=== PATIENT | male | born 1990 | race Caucasian/White ===

== ENCOUNTER 2024-10-23 11:23 | Emergency (ER) | payer OTHER ==
[~2024-10-23] VITALS: Ht 167.6 cm; Wt 65.0 kg
[~2024-10-23 11:23] MED LIST: FLAS1EAC2 TP; FLUC100T PO; INSU100I28 SQ
[2024-10-23 11:43] VITALS: BP 100/63; PULSE 109; RESP 18; TEMP 98.4; O2SAT 98
== END 2024-10-23 14:14 | disposition home or self-care (01) ==
LOC: ER 11:23
DX: E10.649 Type 1 diabetes mellitus with hypoglycemia without coma (principal); F15.10 Other stimulant abuse, uncomplicated; Z79.4 Long term (current) use of insulin
CPT/HCPCS: 82962; 99283

== ENCOUNTER 2024-10-25 14:24 | Emergency (ER) | payer OTHER ==
[~2024-10-25] VITALS: Ht 170.2 cm; Wt 70.0 kg
[2024-10-25 14:27] VITALS: O2SAT 99
[2024-10-25] MEDS: SODIUM CHLORIDE 0.9% 1,000 ML IV ONE ×2 (14:57→16:34)
[2024-10-25 15:10] LABS: BASOPHILS % 0.3 % (0.0-2.0); EOSINOPHILS % 2.6 % (0.0-5.0); HEMATOCRIT. 28.6 % (42.0-52.0); HEMOGLOBIN. 8.8 g/dL (14.0-18.0); LYMPHOCYTES % 15.1 % (20.0-50.0); MEAN CORPUSCULAR HEMOGLOBIN 25.2 pg (28.0-32.0); MEAN CORPUSCULAR HGB CONC 30.9 g/dL (31.0-37.0); MEAN CORPUSCULAR VOLUME 81.6 fL (80.0-94.0); MONOCYTES % 11.7 % (2.0-8.0); NEUTROPHILS % 70.3 % (40.0-76.0); PLATELET 299 x1000/uL (130-400); RED BLOOD CELL COUNT 3.51 mill/uL (4.7-6.1); RED CELL DISTRIBUTION WIDTH 19.7 % (11.6-14.6); WHITE BLOOD COUNT 5.5 x1000/uL (4.5-11.0)
[2024-10-25 15:12] LABS: CHLORIDE 102 mEq/L (98-107); POTASSIUM 5.2 mEq/L (3.5-5.1); SODIUM 131 mEq/L (136-145)
[2024-10-25 15:13] LABS: CALCIUM 9.1 mg/dL (8.7-10.4); CARBON DIOXIDE 22 mEq/L (21-32)
[2024-10-25 15:18] LABS: CREATININE 1.1 mg/dL (0.6-1.3); UREA NITROGEN BLOOD 17 mg/dL (9-23)
[2024-10-25 15:21] LABS: BETA HYDROXYBUTYRATE 0.2 mMol/L (0.0-0.3)
[2024-10-25 15:34] LABS: GLUCOSE 634 mg/dL (70-105)
[2024-10-25] MEDS: INSULIN REGULAR (HUMULIN R) 1000UNITS/10ML VIAL SUBCUT ONE (15:45)
[2024-10-25 17:17] LABS: BG BASE EXCESS -4.5 mmol/L (-2.0-3.0); BG CARBOXYHEMOGLOBIN 0.4 % (0.5-1.5); BG DEOXYHEMOGLOBIN 6.5 % (0.0-5.0); BG HCO3 ACT 20.4 mmol/L (21.0-28.0); BG METHEMOGLOBIN 0.3 % (0.5-1.5); BG OXYGEN SATURATION 93.5 % (94.0-98.0); BG OXYHEMOGLOBIN 92.8 % (94.0-98.0); BG PCO2 36.8 mmHg (35.0-48.0); BG PH 7.362 (7.350-7.450); BG PO2 71.8 mmHg (83.0-108.0); BG SAMPLE SITE RIGHT RADIAL; BG TOTAL HEMOGLOBIN 10.2 g/dL (13.5-17.5); BG VENT MODE ROOM AIR
[2024-10-25] MEDS ORDERED: MAGNESIUM/ALUMINUM HYDROXIDE/SIMETHICONE 30ML UDC PO ONE (17:45)
[2024-10-25] MEDS ORDERED: ACETAMINOPHEN 650MG/20.3ML UDC PO ONE (17:45)
[2024-10-25] MEDS ORDERED: CALCIUM GLUCONATE 100MG/ML 10ML VIAL IV ONE (17:45)
[2024-10-25 18:22] VITALS: TEMP 36.78072; O2SAT 100
[2024-10-25 18:31] VITALS: BP 133/85; PULSE 75; RESP 16
[2024-10-25] MEDS: MORPHINE SULFATE 4 MG/ML INJ (FOR IV/IM USE) IV ONE (18:31)
[2024-10-25] MEDS: ONDANSETRON HCL 4MG/2ML INJ IV ONE (18:31)
[2024-10-25] MEDS: KETOROLAC 15MG/ML VIAL IV ONE (18:31)
== END 2024-10-25 19:05 | disposition short-term general hospital (02) ==
LOC: ER 14:46 → EDBEDREQ 15:04 → CANBEDREQ 17:32 → ER 19:05
DX: E10.65 Type 1 diabetes mellitus with hyperglycemia (principal); E87.5 Hyperkalemia; F15.90 Other stimulant use, unspecified, uncomplicated; Z79.899 Other long term (current) drug therapy
CPT/HCPCS: 80048; 82010; 82962; 83690; 85025; 36415; 82805; 82375; 93005; 96361; 96372; 96374; 96375; 99285; 36600; J1815; J1885; J2405; J2270; J7030; Z7610 ×3; J0610

== ENCOUNTER 2024-11-01 18:52 | Emergency (ER) | payer OTHER ==
[~2024-11-01] VITALS: Ht 167.6 cm; Wt 77.0 kg
[2024-11-01 19:08] VITALS: BP 114/77; PULSE 93; RESP 18; TEMP 98.2; O2SAT 96
[2024-11-01 21:13] LABS: CHLORIDE 110 mEq/L (98-107); POTASSIUM 3.5 mEq/L (3.5-5.1); SODIUM 139 mEq/L (136-145)
[2024-11-01 21:14] LABS: CALCIUM 9.1 mg/dL (8.7-10.4); CARBON DIOXIDE 23 mEq/L (21-32)
[2024-11-01 21:16] LABS: BASOPHILS % 0.2 % (0.0-2.0); EOSINOPHILS % 13.3 % (0.0-5.0); HEMATOCRIT. 32.5 % (42.0-52.0); HEMOGLOBIN. 10.1 g/dL (14.0-18.0); MEAN CORPUSCULAR HGB CONC 31.2 g/dL (31.0-37.0); MEAN CORPUSCULAR VOLUME 80.1 fL (80.0-94.0); MONOCYTES % 5.9 % (2.0-8.0); NEUTROPHILS % 62.6 % (40.0-76.0); PLATELET 451 x1000/uL (130-400); RED BLOOD CELL COUNT 4.05 mill/uL (4.7-6.1); WHITE BLOOD COUNT 13.6 x1000/uL (4.5-11.0)
[2024-11-01 21:19] LABS: CREATININE 0.7 mg/dL (0.6-1.3); UREA NITROGEN BLOOD 9 mg/dL (9-23)
[2024-11-01 21:21] LABS: GLUCOSE 72 mg/dL (70-105)
[2024-11-01 23:06] LABS: ALANINE AMINOTRANSFERASE 16 IU/L (10-49); ASPARTATE AMINOTRANSFERASE 11 IU/L (<34)
[2024-11-01 23:07] LABS: ALBUMIN 4.2 g/dL (3.2-4.8); BILIRUBIN DIRECT 0.1 mg/dL (<=3.0); BILIRUBIN TOTAL 0.4 mg/dL (0.1-1.0); PROTEIN TOTAL 7.2 g/dL (6.0-8.3)
[2024-11-02 01:18] LABS: CLARITY URINE CLEAR (CLEAR); COLOR URINE YELLOW (YELLOW); GLUCOSE URINE 3+ (NEGATIVE); KETONES URINE NEGATIVE (NEGATIVE); LEUKOCYTE ESTERASE URINE NEGATIVE (NEGATIVE); NITRITE URINE NEGATIVE (NEGATIVE); OCCULT BLOOD URINE NEGATIVE (NEGATIVE); PH URINE 5.5 (4.5-8.0); PROTEIN URINE 1+ (NEGATIVE); SPECIFIC GRAVITY URINE 1.027 (1.005-1.030); UROBILINOGEN URINE 0.2 E.U./dL (0.2-1.0)
[2024-11-02] MEDS: MORPHINE SULFATE 4 MG/ML INJ (FOR IV/IM USE) IM ONE (01:30)
[2024-11-02] MEDS: MORPHINE SULFATE 4 MG/ML INJ (FOR IV/IM USE) IM NR (01:30)
[2024-11-02] MEDS: ONDANSETRON 4MG ODT PO NR (01:30)
[2024-11-02] MEDS: ONDANSETRON 4MG ODT PO ONE (01:31)
[2024-11-02 01:57] LABS: WBC URINE 0-2 /hpf (0-2)
[2024-11-02 01:58] LABS: BACTERIA URINE 2+; RBC URINE 0-2 /hpf (0-2); SQUAMOUS EPITHELIAL CELL URINE NONE SEEN /lpf (RARE/1+)
== END 2024-11-02 03:09 | disposition home or self-care (01) ==
LOC: ER 18:52
DX: R10.30 Lower abdominal pain, unspecified (principal); E10.8 Type 1 diabetes mellitus with unspecified complications; F15.90 Other stimulant use, unspecified, uncomplicated
CPT/HCPCS: 99285; 74176; 80076; 80048; 82962; 83690; 85025; 36415; 81003; 96372; Q0162; J2270

== ENCOUNTER 2025-04-26 22:52 | Emergency (ER) | payer MEDICAID ==
[~2025-04-26] VITALS: Ht 165.1 cm; Wt 59.0 kg
[~2025-04-26 22:52] MED LIST changes: -FLUC100T PO; +IBUP-2028 MT; -INSU100I28 SQ; +LANTUSUD SUBCUT
[2025-04-26 22:56] VITALS: O2SAT 99
[2025-04-26] MEDS: ACETAMINOPHEN WITH CODEINE 300/30MG TABLET PO STA (23:53)
[2025-04-26] MEDS: SODIUM CHLORIDE 0.9% 1,000 ML IV ONE (23:53)
[2025-04-26] MEDS: LIDOCAINE 5% PATCH TOP STA (23:59)
[2025-04-27 00:42] LABS: BASOPHILS % 0.6 % (0.0-2.0); EOSINOPHILS % 2.4 % (0.0-5.0); HEMATOCRIT. 30.8 % (42.0-52.0); HEMOGLOBIN. 10.2 g/dL (14.0-18.0); MEAN CORPUSCULAR HEMOGLOBIN 27.6 pg (28.0-32.0); MEAN CORPUSCULAR VOLUME 83.5 fL (80.0-94.0); MEAN PLATELET VOLUME 8.3 fl (7.4-10.4); MONOCYTES % 4.7 % (2.0-8.0); NEUTROPHILS % 57.3 % (40.0-76.0); PLATELET 284 x1000/uL (130-400); RED BLOOD CELL COUNT 3.69 mill/uL (4.7-6.1); RED CELL DISTRIBUTION WIDTH 17.6 % (11.6-14.6); WHITE BLOOD COUNT 5.4 x1000/uL (4.5-11.0)
[2025-04-27 00:53] LABS: PROTHROMBIN TIME 10.8 sec (9.6-11.0)
[2025-04-27 01:04] LABS: CARBON DIOXIDE 26 mEq/L (21-32); CHLORIDE 102 mEq/L (98-107); POTASSIUM 3.8 mEq/L (3.5-5.1); SODIUM 134 mEq/L (136-145)
[2025-04-27 01:05] LABS: CALCIUM 8.8 mg/dL (8.7-10.4)
[2025-04-27 01:10] LABS: ETHANOL BLOOD < 10 mg/dL (<10); UREA NITROGEN BLOOD 20 mg/dL (9-23)
[2025-04-27 01:11] LABS: ALANINE AMINOTRANSFERASE 39 IU/L (10-49); ASPARTATE AMINOTRANSFERASE 22 IU/L (<34)
[2025-04-27 01:12] LABS: ALBUMIN 3.8 g/dL (3.2-4.8); BILIRUBIN DIRECT 0.3 mg/dL (<=3.0); PROTEIN TOTAL 6.1 g/dL (6.0-8.3)
[2025-04-27 01:56] LABS: GLUCOSE 280 mg/dL (70-105); TROPONIN I HIGH SENSITIVITY < 4 ng/L (3.0-53)
[2025-04-27 02:24] LABS: BETA HYDROXYBUTYRATE 0.4 mMol/L (0.0-0.3)
[2025-04-27 03:27] LABS: CLARITY URINE CLEAR (CLEAR); COLOR URINE YELLOW (YELLOW); GLUCOSE URINE 3+ (NEGATIVE); KETONES URINE TRACE (NEGATIVE); LEUKOCYTE ESTERASE URINE NEGATIVE (NEGATIVE); NITRITE URINE NEGATIVE (NEGATIVE); OCCULT BLOOD URINE NEGATIVE (NEGATIVE); PH URINE 5.5 (4.5-8.0); PROTEIN URINE NEGATIVE (NEGATIVE); SPECIFIC GRAVITY URINE 1.021 (1.005-1.030); UROBILINOGEN URINE 0.2 E.U./dL (0.2-1.0)
[2025-04-27 03:30] LABS: *AMPHETAMINES SCREEN URINE PRESUMPTIVE POSITIVE (NEGATIVE)
[2025-04-27 03:31] LABS: *BARBITURATES SCREEN URINE NEGATIVE (NEGATIVE); *BENZODIAZEPINES SCREEN URINE NEGATIVE (NEGATIVE); *COCAINE SCREEN URINE NEGATIVE (NEGATIVE); CANNABINOID URINE SCREEN PRESUMPTIVE POSITIVE (NEGATIVE); ECSTASY MDMA SCREEN URINE NEGATIVE (NEGATIVE); METHADONE URINE SCREEN NEGATIVE (NEGATIVE); OPIATES URINE SCREEN PRESUMPTIVE POSITIVE (NEGATIVE); PHENCYCLIDINE URINE SCREEN NEGATIVE (NEGATIVE)
[2025-04-27 05:34] VITALS: BP 107/74; PULSE 80; RESP 9; TEMP 36.4; O2SAT 98
[2025-04-27 05:36] LABS: RBC URINE 0-2 /hpf (0-2); WBC URINE 0-2 /hpf (0-2)
[2025-04-27 05:37] LABS: BACTERIA URINE NONE SEEN; SQUAMOUS EPITHELIAL CELL URINE NONE SEEN /lpf (RARE/1+)
[2025-04-27 05:38] LABS: YEAST URINE Few budding yeasts
== END 2025-04-27 05:45 | disposition home or self-care (01) ==
LOC: ER 22:52
DX: R55 Syncope and collapse (principal); F19.10 Other psychoactive substance abuse, uncomplicated; E11.9 Type 2 diabetes mellitus without complications; F20.9 Schizophrenia, unspecified; Z59.01 Sheltered homelessness; Z79.4 Long term (current) use of insulin; Z79.899 Other long term (current) drug therapy
CPT/HCPCS: 36415; 71045; 93005; 96360; 99285; 80076; 80305; 80048; 81003; 82010; 80320; 83880; 83605; 83690; 85025; 85610; 87040; 87086; 84484; 84145; 70450; 72125; J7030; G0480

== ENCOUNTER 2025-05-06 00:58 | Inpatient (IN) | payer MEDICAID ==
[2025-05-06] VITALS (17 sets, daily range): BP systolic 110–140; BP diastolic 64–93; PULSE 80–96; RESP 11–20; TEMP 36.6–37.1; O2SAT 97–100
[~2025-05-06] VITALS: Ht 165.1 cm; Wt 59.1 kg
[2025-05-06] MEDS ORDERED: INSULIN GLARGINE 100 UNITS/ML SUBCUT ONE (01:30)
[2025-05-06 01:43] LABS: BASOPHILS % 0.5 % (0.0-2.0); EOSINOPHILS % 0.8 % (0.0-5.0); HEMATOCRIT. 27.8 % (42.0-52.0); HEMOGLOBIN. 8.8 g/dL (14.0-18.0); LYMPHOCYTES % 12.5 % (20.0-50.0); MEAN CORPUSCULAR HEMOGLOBIN 27.3 pg (28.0-32.0); MEAN CORPUSCULAR HGB CONC 31.7 g/dL (31.0-37.0); MEAN CORPUSCULAR VOLUME 86.2 fL (80.0-94.0); MEAN PLATELET VOLUME 7.3 fl (7.4-10.4); NEUTROPHILS % 77.2 % (40.0-76.0); PLATELET 434 x1000/uL (130-400); RED BLOOD CELL COUNT 3.22 mill/uL (4.7-6.1); RED CELL DISTRIBUTION WIDTH 16.8 % (11.6-14.6); WHITE BLOOD COUNT 8.1 x1000/uL (4.5-11.0)
[2025-05-06] MEDS ORDERED: HYDROCODONE/ACETAMINOPHEN 5/325MG TABLET PO ONE (01:45)
[2025-05-06 01:50] LABS: CARBON DIOXIDE 24 mEq/L (21-32); CHLORIDE 94 mEq/L (98-107); POTASSIUM 4.6 mEq/L (3.5-5.1); SODIUM 132 mEq/L (136-145)
[2025-05-06 01:51] LABS: CALCIUM 9.4 mg/dL (8.7-10.4)
[2025-05-06 01:55] LABS: CREATININE 1.3 mg/dL (0.6-1.3)
[2025-05-06 01:56] LABS: ETHANOL BLOOD < 10 mg/dL (<10); UREA NITROGEN BLOOD 21 mg/dL (9-23)
[2025-05-06 01:58] LABS: BETA HYDROXYBUTYRATE 2.7 mMol/L (0.0-0.3); PHOSPHORUS 3.8 mg/dL (2.5-4.9)
[2025-05-06 02:08] LABS: GLUCOSE 723 mg/dL (70-105)
[2025-05-06] MEDS: SODIUM CHLORIDE 0.9% 1,000 ML IV ONE ×2 (02:15→05:45)
[2025-05-06] MEDS ORDERED: KCL 20MEQ/100ML PREMIX 100 ML IV PRN ×2 (02:30→08:00)
[2025-05-06] MEDS ORDERED: MAGNESIUM 2 G PREMIX 50 ML IV PRN ×2 (02:30→08:00)
[2025-05-06] MEDS ORDERED: BLOOD SUGAR DIAGNOSTIC STRIP TEST PRN ×2 (02:30→08:00)
[2025-05-06] MEDS: INSULIN REGULAR (HUMULIN R) 1000UNITS/10ML VIAL IV SCH (02:47)
[2025-05-06] MEDS: BLOOD SUGAR DIAGNOSTIC STRIP TEST SCH ×2 (03:00→11:44)
[2025-05-06] MEDS ORDERED: INSULIN REGULAR 100U/100ML PMX 100 ML IV SCH (03:00)
[2025-05-06] MEDS: PROPOFOL 200MG/20ML VIAL IV ONE (03:26)
[2025-05-06] MEDS: INSULIN REGULAR 100U/100ML PMX 100 ML IV SCH (04:35)
[2025-05-06] MEDS: HYDROCODONE/ACETAMINOPHEN 5/325MG TABLET PO SCH (04:52)
[2025-05-06] MEDS: SODIUM CHLORIDE 0.9% 1,000 ML IV SCH (04:59)
[2025-05-06] MEDS: ACETAMINOPHEN 1000MG/100ML 100 ML IV ONE (05:44)
[2025-05-06] MEDS ORDERED: DEXTROSE 50% WATER 50ML SYRINGE IV PRN ×2 (08:00→09:30)
[2025-05-06] MEDS ORDERED: SODIUM CHLORIDE 0.9% 1,000 ML IV SCH (08:00)
[2025-05-06] MEDS ORDERED: INSULIN REGULAR (DRIP) 100 UNITS in SODIUM CHLORIDE 0.9% 99 ML IV SCH (08:00)
[2025-05-06 08:01] LABS: CLARITY URINE CLEAR (CLEAR); COLOR URINE YELLOW (YELLOW); GLUCOSE URINE 3+ (NEGATIVE); KETONES URINE 1+ (NEGATIVE); LEUKOCYTE ESTERASE URINE NEGATIVE (NEGATIVE); NITRITE URINE NEGATIVE (NEGATIVE); OCCULT BLOOD URINE NEGATIVE (NEGATIVE); PROTEIN URINE NEGATIVE (NEGATIVE); SPECIFIC GRAVITY URINE 1.028 (1.005-1.030); UROBILINOGEN URINE 0.2 E.U./dL (0.2-1.0)
[2025-05-06] MEDS: DEXT 5%/0.9% NACL 1,000 ML IV SCH (08:34)
[2025-05-06 08:47] LABS: *AMPHETAMINES SCREEN URINE PRESUMPTIVE POSITIVE (NEGATIVE); *BARBITURATES SCREEN URINE NEGATIVE (NEGATIVE); *BENZODIAZEPINES SCREEN URINE NEGATIVE (NEGATIVE); *COCAINE SCREEN URINE NEGATIVE (NEGATIVE); CANNABINOID URINE SCREEN NEGATIVE (NEGATIVE); ECSTASY MDMA SCREEN URINE NEGATIVE (NEGATIVE); METHADONE URINE SCREEN NEGATIVE (NEGATIVE); OPIATES URINE SCREEN NEGATIVE (NEGATIVE); PHENCYCLIDINE URINE SCREEN NEGATIVE (NEGATIVE)
[2025-05-06] MEDS: DEXTROSE 50% WATER 50ML SYRINGE IV PRN (08:49)
[2025-05-06 08:52] LABS: SQUAMOUS EPITHELIAL CELL URINE RARE /lpf (RARE/1+)
[2025-05-06 08:53] LABS: BACTERIA URINE TRACE; RBC URINE 0-2 /hpf (0-2); WBC URINE 0-2 /hpf (0-2)
[2025-05-06 08:56] LABS: YEAST URINE 1+
[2025-05-06] MEDS ORDERED: POTASSIUM CHLORIDE 40 MEQ in SODIUM CHLORIDE 0.9% 230 ML IV PRN (09:00)
[2025-05-06] MEDS ORDERED: SODIUM PHOSPHATE 15 MMOL in SODIUM CHLORIDE 0.9% 245 ML IV PRN (09:00)
[2025-05-06 09:17] LABS: BG BASE EXCESS 2.4 mmol/L (-2.0-3.0); BG CARBOXYHEMOGLOBIN 0.3 % (0.5-1.5); BG DEOXYHEMOGLOBIN 4.5 % (0.0-5.0); BG FRACTION INSPIRED OXYGEN 21; BG HCO3 ACT 27.4 mmol/L (21.0-28.0); BG METHEMOGLOBIN 0.1 % (0.5-1.5); BG OXYGEN SATURATION 95.5 % (94.0-98.0); BG OXYHEMOGLOBIN 95.1 % (94.0-98.0); BG PCO2 44.4 mmHg (35.0-48.0); BG PH 7.408 (7.350-7.450); BG PO2 123.7 mmHg (83.0-108.0); BG SAMPLE SITE RIGHT RADIAL; BG TOTAL HEMOGLOBIN 8.1 g/dL (13.5-17.5); BG VENT MODE ROOM AIR
[2025-05-06] MEDS ORDERED: NALOXONE HCL 0.4MG/ML VIAL IV PRN ×2 (09:30→16:30)
[2025-05-06] MEDS: INSULIN GLARGINE 100 UNITS/ML SUBCUT NR (10:28)
[2025-05-06] MEDS: INSULIN LISPRO 100 UNITS/ML SUBCUT SCH ×3 (11:55→17:05)
[2025-05-06 11:57] LABS: CHLORIDE 104 mEq/L (98-107); POTASSIUM 3.7 mEq/L (3.5-5.1); SODIUM 140 mEq/L (136-145)
[2025-05-06 11:58] LABS: CALCIUM 8.8 mg/dL (8.7-10.4); CARBON DIOXIDE 25 mEq/L (21-32)
[2025-05-06 12:03] LABS: CREATININE 0.7 mg/dL (0.6-1.3)
[2025-05-06 12:04] LABS: UREA NITROGEN BLOOD 14 mg/dL (9-23)
[2025-05-06 12:06] LABS: PHOSPHORUS 3.3 mg/dL (2.5-4.9)
[2025-05-06 12:12] LABS: GLUCOSE 252 mg/dL (70-105)
[2025-05-06] MEDS: HYDROCODONE/ACETAMINOPHEN 5/325MG TABLET PO PRN (13:14)
[2025-05-06] MEDS: INSULIN GLARGINE 100 UNITS/ML SUBCUT SCH ×2 (17:06→21:36)
[2025-05-06] MEDS ORDERED: INSULIN GLARGINE 100 UNITS/ML SUBCUT SCH (22:00)
[2025-05-07] VITALS: BP 132/74; PULSE 97; RESP 22; TEMP 36.2; O2SAT 100
[2025-05-07 04:00] VITALS: BP 95/56; PULSE 90; RESP 20; TEMP 36.2; O2SAT 99
[2025-05-07 08:00] VITALS: BP 107/77; PULSE 88; RESP 20; TEMP 36.4; O2SAT 98
[2025-05-07 12:00] VITALS: BP 64/57; PULSE 93; RESP 20; TEMP 36.5; O2SAT 100
[2025-05-07 13:38] VITALS: RESP 20
[2025-05-07 17:23] VITALS: BP 111/62; PULSE 93; TEMP 97; O2SAT 100
== END 2025-05-07 17:57 | disposition home or self-care (01) | DRG 342 ==
LOC: ER 01:11 → MICUSO 03:27 → EDBEDREQ 04:25 → EDBEDREQTM 04:25 → ENRESERV 06:25 → 8WST 17:42
PROVIDERS: ADMIT Internal Medicine; ATTEND Internal Medicine
PROC: 0QSGXZZ Reposition Right Tibia, External Approach (ICD-10-PCS; principal; 2025-05-06)
DX: S82.851A Displaced trimalleolar fracture of right lower leg, initial encounter for closed fracture (principal); E11.40 Type 2 diabetes mellitus with diabetic neuropathy, unspecified; D64.9 Anemia, unspecified; F15.90 Other stimulant use, unspecified, uncomplicated; F17.210 Nicotine dependence, cigarettes, uncomplicated; W18.39XA Other fall on same level, initial encounter; Z79.4 Long term (current) use of insulin; Y93.89 Activity, other specified; Y92.89 Other specified places as the place of occurrence of the external cause; Y99.8 Other external cause status; Z79.899 Other long term (current) drug therapy
CPT/HCPCS: 36415; 36600; 73610; 80048; 80305; 80320; 81003; 82010; 82375; 82805; 82962; 83036; 83735; 83930; 84100; 85025; 99291; A4606; J1815; J2704; J7030; G0480; J0131

== ENCOUNTER 2025-05-12 00:52 | Inpatient (IN) | payer MEDICAID ==
[2025-05-12] VITALS (56 sets, daily range): BP systolic 99–131; BP diastolic 58–92; PULSE 88–107; RESP 9–28; TEMP 35.6–36.5; O2SAT 97–100
[~2025-05-12] VITALS: Ht 172.7 cm; Wt 69.4 kg
[2025-05-12 01:30] LABS: BG BASE EXCESS -26.7 mmol/L (-2.0-3.0); BG CARBOXYHEMOGLOBIN 0.3 % (0.5-1.5); BG DEOXYHEMOGLOBIN 4.2 % (0.0-5.0); BG FRACTION INSPIRED OXYGEN 21; BG HCO3 ACT 2.3 mmol/L (21.0-28.0); BG METHEMOGLOBIN 0.1 % (0.5-1.5); BG OXYGEN SATURATION 95.8 % (94.0-98.0); BG OXYHEMOGLOBIN 95.4 % (94.0-98.0); BG PCO2 9.3 mmHg (35.0-48.0); BG PH 7.009 (7.350-7.450); BG PO2 148.1 mmHg (83.0-108.0); BG SAMPLE SITE RIGHT RADIAL; BG TOTAL HEMOGLOBIN 9.7 g/dL (13.5-17.5); BG VENT MODE ROOM AIR
[2025-05-12] MEDS: INSULIN REGULAR 100U/100ML PMX 100 ML IV STA (01:34)
[2025-05-12 01:50] LABS: BASOPHILS % 0.4 % (0.0-2.0); EOSINOPHILS % 0.1 % (0.0-5.0); HEMATOCRIT. 34.3 % (42.0-52.0); HEMOGLOBIN. 9.9 g/dL (14.0-18.0); LYMPHOCYTES % 8.4 % (20.0-50.0); MEAN PLATELET VOLUME 8.0 fl (7.4-10.4); MONOCYTES % 4.4 % (2.0-8.0); NEUTROPHILS % 86.7 % (40.0-76.0); PLATELET 772 x1000/uL (130-400); RED BLOOD CELL COUNT 3.70 mill/uL (4.7-6.1); RED CELL DISTRIBUTION WIDTH 15.2 % (11.6-14.6)
[2025-05-12 01:56] LABS: COLOR URINE YELLOW (YELLOW)
[2025-05-12 01:57] LABS: *AMPHETAMINES SCREEN URINE PRESUMPTIVE POSITIVE (NEGATIVE); *BARBITURATES SCREEN URINE NEGATIVE (NEGATIVE); *BENZODIAZEPINES SCREEN URINE NEGATIVE (NEGATIVE); *COCAINE SCREEN URINE NEGATIVE (NEGATIVE); CLARITY URINE CLEAR (CLEAR); GLUCOSE URINE 3+ (NEGATIVE); KETONES URINE 4+ (NEGATIVE); LEUKOCYTE ESTERASE URINE NEGATIVE (NEGATIVE); METHADONE URINE SCREEN NEGATIVE (NEGATIVE); NITRITE URINE NEGATIVE (NEGATIVE); OCCULT BLOOD URINE TRACE (NEGATIVE); OPIATES URINE SCREEN NEGATIVE (NEGATIVE); PH URINE 5.0 (4.5-8.0); PHENCYCLIDINE URINE SCREEN NEGATIVE (NEGATIVE); PROTEIN URINE TRACE (NEGATIVE); SPECIFIC GRAVITY URINE 1.022 (1.005-1.030); UROBILINOGEN URINE 0.2 E.U./dL (0.2-1.0)
[2025-05-12 01:58] LABS: CANNABINOID URINE SCREEN NEGATIVE (NEGATIVE); ECSTASY MDMA SCREEN URINE CONF.TEST INDICATED (NEGATIVE)
[2025-05-12 02:06] LABS: ETHANOL BLOOD < 10 mg/dL (<10); UREA NITROGEN BLOOD 39 mg/dL (9-23)
[2025-05-12 02:08] LABS: PHOSPHORUS 7.2 mg/dL (2.5-4.9)
[2025-05-12] MEDS ORDERED: POTASSIUM CHLORIDE 40 MEQ in SODIUM CHLORIDE 0.9% 230 ML IV PRN (02:15)
[2025-05-12] MEDS ORDERED: INSULIN REGULAR 100U/100ML PMX 100 ML IV SCH (02:15)
[2025-05-12] MEDS ORDERED: BLOOD SUGAR DIAGNOSTIC STRIP TEST PRN (02:15)
[2025-05-12] MEDS ORDERED: SODIUM PHOSPHATE 15 MMOL in SODIUM CHLORIDE 0.9% 245 ML IV PRN (02:15)
[2025-05-12] MEDS ORDERED: IPRATROPIUM/ALBUTEROL 0.5-3(2.5)MG/3ML NEB NEB PRN (02:15)
[2025-05-12] MEDS ORDERED: ACETAMINOPHEN 325MG TABLET PO PRN (02:15)
[2025-05-12] MEDS ORDERED: DEXTROSE 50% WATER 50ML SYRINGE IV PRN ×2 (02:15→18:15)
[2025-05-12 02:24] LABS: CREATININE 2.0 mg/dL (0.6-1.3)
[2025-05-12 02:28] LABS: BACTERIA URINE TRACE; RBC URINE NONE SEEN /hpf (0-2); SQUAMOUS EPITHELIAL CELL URINE RARE /lpf (RARE/1+); WBC URINE NONE SEEN /hpf (0-2)
[2025-05-12] MEDS ORDERED: NALOXONE HCL 0.4MG/ML VIAL IV PRN ×2 (02:30→11:15)
[2025-05-12] MEDS: SODIUM CHLORIDE 0.9% 1,000 ML IV ONE ×3 (02:46→08:36)
[2025-05-12] MEDS: INSULIN REGULAR 100U/100ML PMX 100 ML IV SCH (03:12)
[2025-05-12] MEDS ORDERED: SODIUM POLYSTYRENE SULFONATE 15 G/60 ML BOT PO ONE (04:00)
[2025-05-12] MEDS: ONDANSETRON HCL 4MG/2ML INJ IV STA (04:36)
[2025-05-12] MEDS: MORPHINE SULFATE 2 MG/ML INJ (NOT FOR IM USE) IV PRN (04:36)
[2025-05-12] MEDS: ONDANSETRON HCL 4MG/2ML INJ IV PRN (04:45)
[2025-05-12] MEDS ORDERED: DEXTROSE 50% WATER 50ML SYRINGE IV SCH (05:00)
[2025-05-12] MEDS: SODIUM CHLORIDE 0.9% 1,000 ML IV SCH ×2 (05:00→20:36)
[2025-05-12] MEDS ORDERED: INSULIN REGULAR (HUMULIN R) 1000UNITS/10ML VIAL IV SCH (05:00)
[2025-05-12] MEDS ORDERED: ALBUTEROL (0.083%) 2.5MG/3ML NEB HHN SCH (05:00)
[2025-05-12] MEDS: BLOOD SUGAR DIAGNOSTIC STRIP TEST SCH ×2 (05:20→20:36)
[2025-05-12] MEDS: CALCIUM CHLORIDE 1GM/10ML SYR IV SCH (06:17)
[2025-05-12] MEDS: SODIUM BICARBONATE 8.4% 50MEQ/50ML SYR IV SCH ×2 (06:17→08:16)
[2025-05-12] MEDS: SODIUM ZIRCONIUM CYCLOSILICATE 10GM/PACKET PO SCH (06:17)
[2025-05-12] MEDS: HYDROCODONE/ACETAMINOPHEN 5/325MG TABLET PO PRN (06:33)
[2025-05-12 07:34] LABS: CLARITY URINE CLEAR (CLEAR); COLOR URINE YELLOW (YELLOW); GLUCOSE URINE 3+ (NEGATIVE); KETONES URINE 4+ (NEGATIVE); LEUKOCYTE ESTERASE URINE NEGATIVE (NEGATIVE); NITRITE URINE NEGATIVE (NEGATIVE); OCCULT BLOOD URINE 1+ (NEGATIVE); PH URINE 5.0 (4.5-8.0); PROTEIN URINE TRACE (NEGATIVE); SPECIFIC GRAVITY URINE 1.022 (1.005-1.030); UROBILINOGEN URINE 0.2 E.U./dL (0.2-1.0)
[2025-05-12 08:04] LABS: BG BASE EXCESS -20.4 mmol/L (-2.0-3.0); BG CARBOXYHEMOGLOBIN 0.3 % (0.5-1.5); BG DEOXYHEMOGLOBIN 4.2 % (0.0-5.0); BG FRACTION INSPIRED OXYGEN 21; BG HCO3 ACT 5.0 mmol/L (21.0-28.0); BG METHEMOGLOBIN 0.1 % (0.5-1.5); BG OXYGEN SATURATION 95.8 % (94.0-98.0); BG OXYHEMOGLOBIN 95.4 % (94.0-98.0); BG PCO2 12.4 mmHg (35.0-48.0); BG PH 7.225 (7.350-7.450); BG PO2 133.6 mmHg (83.0-108.0); BG SAMPLE SITE RIGHT RADIAL; BG TOTAL HEMOGLOBIN 9.1 g/dL (13.5-17.5); BG VENT MODE ROOM AIR
[2025-05-12 08:04] LABS: FINE GRANULAR CASTS URINE 0-5 /lpf
[2025-05-12 08:06] LABS: RBC URINE NONE SEEN /hpf (0-2); WBC URINE 0-2 /hpf (0-2)
[2025-05-12 08:07] LABS: BACTERIA URINE 1+; MUCUS URINE 1+ /lpf (NONE/TRACE); SQUAMOUS EPITHELIAL CELL URINE RARE /lpf (RARE/1+)
[2025-05-12 08:08] LABS: YEAST URINE 1+
[2025-05-12] MEDS: PANTOPRAZOLE SODIUM 40 MG/VIAL IV SCH (08:15)
[2025-05-12] MEDS: ENOXAPARIN 40MG/0.4ML SYR SUBCUT SCH (08:16)
[2025-05-12 10:08] LABS: CREATININE 1.5 mg/dL (0.6-1.3)
[2025-05-12 10:09] LABS: UREA NITROGEN BLOOD 34 mg/dL (9-23)
[2025-05-12 10:11] LABS: PHOSPHORUS 3.8 mg/dL (2.5-4.9)
[2025-05-12] MEDS: KCL 20MEQ/100ML PREMIX 100 ML IV PRN (10:11)
[2025-05-12] MEDS: DEXT 5%/0.9% NACL 1,000 ML IV SCH (10:15)
[2025-05-12 12:02] LABS: HEPATITIS C AB NON REACTIVE (Neg) (Negative)
[2025-05-12 17:44] LABS: CREATININE 1.1 mg/dL (0.6-1.3)
[2025-05-12 17:45] LABS: UREA NITROGEN BLOOD 25 mg/dL (9-23)
[2025-05-12 17:47] LABS: PHOSPHORUS 2.6 mg/dL (2.5-4.9)
[2025-05-12] MEDS: MAGNESIUM 2 G PREMIX 50 ML IV PRN (17:56)
[2025-05-12] MEDS: INSULIN GLARGINE 100 UNITS/ML SUBCUT NR (19:17)
[2025-05-12 20:50] LABS: CREATININE 1.1 mg/dL (0.6-1.3); UREA NITROGEN BLOOD 20 mg/dL (9-23)
[2025-05-12 20:52] LABS: PHOSPHORUS 2.0 mg/dL (2.5-4.9)
[2025-05-12] MEDS: INSULIN LISPRO 100 UNITS/ML SUBCUT SCH (21:46)
[2025-05-13] VITALS (32 sets, daily range): BP systolic 52–137; BP diastolic 26–91; PULSE 88–101; RESP 10–22; TEMP 36.3–36.8; O2SAT 96–100
[2025-05-13 05:13] LABS: CREATININE 0.9 mg/dL (0.6-1.3); UREA NITROGEN BLOOD 17 mg/dL (9-23)
[2025-05-13] MEDS ORDERED: DEXTROSE 50% WATER 50ML SYRINGE IV PRN (07:45)
[2025-05-13] MEDS: POTASSIUM CHLORIDE 20MEQ/PACKET PO NR (08:41)
[2025-05-13] MEDS: INSULIN LISPRO 100 UNITS/ML SUBCUT SCH (09:16)
[2025-05-13 10:25] LABS: PHOSPHORUS 1.7 mg/dL (2.5-4.9)
[2025-05-13] MEDS ORDERED: INSULIN GLARGINE 100 UNITS/ML SUBCUT SCH (10:30)
[2025-05-13 10:35] LABS: PLATELET 570 x1000/uL (130-400); RED BLOOD CELL COUNT 2.93 mill/uL (4.7-6.1); RED CELL DISTRIBUTION WIDTH 15.8 % (11.6-14.6)
[2025-05-13] MEDS: INSULIN LISPRO 100 UNITS/ML SUBCUT NR (18:51)
[2025-05-13] MEDS: INSULIN GLARGINE 100 UNITS/ML SUBCUT SCH (21:20)
[2025-05-14] VITALS (7 sets, daily range): BP systolic 121–145; BP diastolic 82–95; PULSE 86–96; RESP 18–20; TEMP 36.2–36.9; O2SAT 96–100
[2025-05-14] MEDS: ZOLPIDEM TARTRATE 5MG TABLET PO PRN (00:39)
[2025-05-14 06:29] LABS: BASOPHILS % 0.3 % (0.0-2.0); EOSINOPHILS % 0.9 % (0.0-5.0); HEMATOCRIT. 25.0 % (42.0-52.0); HEMOGLOBIN. 8.2 g/dL (14.0-18.0); LYMPHOCYTES % 20.9 % (20.0-50.0); MEAN PLATELET VOLUME 7.6 fl (7.4-10.4); MONOCYTES % 7.6 % (2.0-8.0); NEUTROPHILS % 70.3 % (40.0-76.0); PLATELET 486 x1000/uL (130-400); RED BLOOD CELL COUNT 3.02 mill/uL (4.7-6.1); RED CELL DISTRIBUTION WIDTH 15.6 % (11.6-14.6)
[2025-05-14 06:54] LABS: CREATININE 0.7 mg/dL (0.6-1.3); UREA NITROGEN BLOOD 10 mg/dL (9-23)
[2025-05-14] MEDS: TAMSULOSIN HCL 0.4MG SR CAPSULE PO SCH (12:10)
[2025-05-14] MEDS: INSULIN GLARGINE 100 UNITS/ML SUBCUT ONE (12:11)
[2025-05-15 04:00] VITALS: BP 135/85; PULSE 95; RESP 18; TEMP 36.5; O2SAT 98
[2025-05-15 08:00] VITALS: BP 124/89; PULSE 93; RESP 18; TEMP 36.5; O2SAT 98
[2025-05-15 09:32] LABS: BASOPHILS % 0.5 % (0.0-2.0); EOSINOPHILS % 3.9 % (0.0-5.0); HEMATOCRIT. 26.7 % (42.0-52.0); HEMOGLOBIN. 8.8 g/dL (14.0-18.0); LYMPHOCYTES % 29.9 % (20.0-50.0); MEAN PLATELET VOLUME 6.9 fl (7.4-10.4); MONOCYTES % 7.0 % (2.0-8.0); NEUTROPHILS % 58.7 % (40.0-76.0); PLATELET 508 x1000/uL (130-400); RED BLOOD CELL COUNT 3.22 mill/uL (4.7-6.1); RED CELL DISTRIBUTION WIDTH 16.1 % (11.6-14.6)
[2025-05-15 09:50] LABS: CREATININE 0.7 mg/dL (0.6-1.3); UREA NITROGEN BLOOD 9 mg/dL (9-23)
[2025-05-15] MEDS: INSULIN GLARGINE 100 UNITS/ML SUBCUT SCH (11:11)
[2025-05-15 13:00] VITALS: BP 133/89; PULSE 89; RESP 18; TEMP 36.6; O2SAT 100
[2025-05-15] MEDS ORDERED: THIA100T72 MT (13:12)
[2025-05-15] MEDS ORDERED: LANTUSUD SUBCUT (13:12)
[2025-05-15] MEDS ORDERED: TAMS-54 PO (13:12)
[2025-05-15 14:05] VITALS: BP 133/89; PULSE 89; TEMP 97.8; O2SAT 100
== END 2025-05-15 18:15 | disposition home or self-care (01) | DRG 720 ==
LOC: ER 00:52 → EDBEDREQ 01:16 → MICUNO 01:59 → EDBEDREQ 02:00 → ENRESERV 02:25 → 8WST 05-13 15:36
PROVIDERS: ADMIT Internal Medicine; ATTEND Internal Medicine
DX: A41.9 Sepsis, unspecified organism (principal); N17.9 Acute kidney failure, unspecified; E10.10 Type 1 diabetes mellitus with ketoacidosis without coma; S82.851A Displaced trimalleolar fracture of right lower leg, initial encounter for closed fracture; D64.9 Anemia, unspecified; E87.5 Hyperkalemia; W01.0XXA Fall on same level from slipping, tripping and stumbling without subsequent striking against object, initial encounter; E87.6 Hypokalemia; S92.001A Unspecified fracture of right calcaneus, initial encounter for closed fracture; Z79.899 Other long term (current) drug therapy; Z79.4 Long term (current) use of insulin; Z91.148 Patient's other noncompliance with medication regimen for other reason; Z91.81 History of falling; Y93.89 Activity, other specified; Y92.89 Other specified places as the place of occurrence of the external cause; Y99.8 Other external cause status
CPT/HCPCS: 36415; 36600; 71045; 73590; 73600; 73620; 73700; 80048; 80051; 80305; 80320; 81003; 82010; 82375; 82805; 82962; 83036; 83605; 83735; 83930; 84100; 85025; 85027; 86705; 87106; 87340; 93005; 93970; 97162; 97166; 99291; A4606; A6449; J1650; J1815; J2270; J2405; J2470; J3475; J3480; J3490; J7030; J7042; G0480

== ENCOUNTER 2025-05-20 18:31 | Inpatient (IN) | payer MEDICAID, OTHER ==
[~2025-05-20] VITALS: Ht 175.3 cm; Wt 60.0 kg
[~2025-05-20 18:31] MED LIST changes: +TAMS-54 PO; +THIA100T72 MT
[2025-05-20] MEDS: SODIUM CHLORIDE 0.9% (SEPSIS BOLUS) IV ONE (19:14)
[2025-05-20] MEDS: PIPERACILLIN/TAZO 3.375G/50ML 50 ML IV ONE (19:17)
[2025-05-20 19:27] LABS: HEMATOCRIT. 25.6 % (42.0-52.0); HEMOGLOBIN. 8.2 g/dL (14.0-18.0); MEAN PLATELET VOLUME 7.5 fl (7.4-10.4); PLATELET 537 x1000/uL (130-400); RED BLOOD CELL COUNT 3.09 mill/uL (4.7-6.1); RED CELL DISTRIBUTION WIDTH 15.3 % (11.6-14.6)
[2025-05-20 19:37] LABS: INR 0.9
[2025-05-20 19:44] LABS: UREA NITROGEN BLOOD 21 mg/dL (9-23)
[2025-05-20 19:45] LABS: LYMPHOCYTES % MANUAL 7.0 % (20.0-50.0); MONOCYTES % MANUAL 9.0 % (2.0-8.0); NEUTROPHILS % MANUAL 84.0 % (45.0-75.0); PLATELET ESTIMATE INCREASED
[2025-05-20 19:46] LABS: BILIRUBIN DIRECT 0.2 mg/dL (<=3.0); BILIRUBIN TOTAL 0.5 mg/dL (0.1-1.0); PROTEIN TOTAL 7.5 g/dL (6.0-8.3)
[2025-05-20 19:47] LABS: ASPARTATE AMINOTRANSFERASE < 8 IU/L (<34); CREATININE 1.4 mg/dL (0.6-1.3)
[2025-05-20] MEDS: VANCOMYCIN 1G PREMIX 200 ML IV ONE (20:08)
[2025-05-20 22:08] LABS: BG DEOXYHEMOGLOBIN 32.0 % (0.0-5.0)
[2025-05-20] MEDS ORDERED: KCL 20MEQ/100ML PREMIX 100 ML IV PRN (22:45)
[2025-05-20] MEDS ORDERED: SODIUM PHOSPHATE 15 MMOL in SODIUM CHLORIDE 0.9% 245 ML IV PRN (22:45)
[2025-05-20] MEDS: DEXT 5%/0.9% NACL 1,000 ML IV SCH (22:45)
[2025-05-20] MEDS ORDERED: INSULIN REGULAR (DRIP) 100 UNITS in SODIUM CHLORIDE 0.9% 99 ML IV SCH (22:45)
[2025-05-20] MEDS ORDERED: DEXTROSE 50% WATER 50ML SYRINGE IV PRN ×2 (22:45→23:30)
[2025-05-20] MEDS ORDERED: BLOOD SUGAR DIAGNOSTIC STRIP TEST PRN (22:45)
[2025-05-20] MEDS ORDERED: POTASSIUM CHLORIDE 40 MEQ in SODIUM CHLORIDE 0.9% 230 ML IV PRN (22:45)
[2025-05-20] MEDS ORDERED: MAGNESIUM 2 G PREMIX 50 ML IV PRN (22:45)
[2025-05-20] MEDS ORDERED: IPRATROPIUM/ALBUTEROL 0.5-3(2.5)MG/3ML NEB NEB PRN (23:00)
[2025-05-20] MEDS: BLOOD SUGAR DIAGNOSTIC STRIP TEST SCH (23:11)
[2025-05-20] MEDS: INSULIN REGULAR 100U/100ML PMX 100 ML IV SCH (23:20)
[2025-05-20] MEDS: SODIUM CHLORIDE 0.9% 1,000 ML IV SCH (23:20)
[2025-05-20] MEDS ORDERED: GUAIFENESIN 200MG/10ML SUGAR FREE UDC PO PRN (23:30)
[2025-05-20] MEDS ORDERED: DOCUSATE SODIUM 100MG CAPSULE PO PRN (23:30)
[2025-05-20] MEDS ORDERED: IPRATROPIUM/ALBUTEROL 0.5-3(2.5)MG/3ML NEB HHN PRN (23:30)
[2025-05-20] MEDS ORDERED: CLONIDINE 0.1MG TABLET PO PRN (23:30)
[2025-05-20] MEDS ORDERED: MAGNESIUM/ALUMINUM HYDROXIDE/SIMETHICONE 30ML UDC PO PRN (23:30)
[2025-05-21] VITALS (34 sets, daily range): BP systolic 105–138; BP diastolic 70–97; PULSE 96–112; RESP 13–20; TEMP 36.7–37.9; O2SAT 95–99
[2025-05-21] MEDS ORDERED: CLINDAMYCIN 900MG PREMIX 50 ML IV SCH
[2025-05-21 00:14] LABS: CLARITY URINE CLEAR (CLEAR); COLOR URINE YELLOW (YELLOW); PH URINE 5.0 (4.5-8.0); SPECIFIC GRAVITY URINE 1.032 (1.005-1.030)
[2025-05-21 00:15] LABS: GLUCOSE URINE 3+ (NEGATIVE); KETONES URINE 2+ (NEGATIVE); PROTEIN URINE TRACE (NEGATIVE)
[2025-05-21 00:16] LABS: LEUKOCYTE ESTERASE URINE NEGATIVE (NEGATIVE); NITRITE URINE NEGATIVE (NEGATIVE); OCCULT BLOOD URINE 2+ (NEGATIVE); UROBILINOGEN URINE 0.2 E.U./dL (0.2-1.0)
[2025-05-21 00:31] LABS: SQUAMOUS EPITHELIAL CELL URINE FEW /lpf (RARE/1+)
[2025-05-21 00:32] LABS: RBC URINE 0-2 /hpf (0-2); WBC URINE 0-2 /hpf (0-2)
[2025-05-21 00:33] LABS: BACTERIA URINE TRACE; YEAST URINE Few budding yeasts
[2025-05-21] MEDS: MORPHINE SULFATE 2 MG/ML INJ (NOT FOR IM USE) IV PRN ×2 (00:37→12:49)
[2025-05-21] MEDS: PIPERACILLIN/TAZO 3.375G/50ML 50 ML IV SCH (01:04)
[2025-05-21] MEDS: INSULIN GLARGINE 100 UNITS/ML SUBCUT SCH (01:05)
[2025-05-21] MEDS: CLINDAMYCIN 900MG PREMIX 50 ML IV SCH (02:45)
[2025-05-21] MEDS: BLOOD SUGAR DIAGNOSTIC STRIP TEST SCH (03:52)
[2025-05-21] MEDS: INSULIN LISPRO 100 UNITS/ML SUBCUT SCH (04:14)
[2025-05-21 05:12] LABS: HEMATOCRIT. 26.1 % (42.0-52.0); HEMOGLOBIN. 8.5 g/dL (14.0-18.0); MEAN PLATELET VOLUME 7.7 fl (7.4-10.4); PLATELET 521 x1000/uL (130-400); RED BLOOD CELL COUNT 3.18 mill/uL (4.7-6.1); RED CELL DISTRIBUTION WIDTH 15.2 % (11.6-14.6)
[2025-05-21 05:37] LABS: CREATININE 1.1 mg/dL (0.6-1.3)
[2025-05-21 05:38] LABS: LDL CHOLESTEROL 73 mg/dL (5-100); TRIGLYCERIDE 216 mg/dL (0-150); UREA NITROGEN BLOOD 14 mg/dL (9-23)
[2025-05-21 05:40] LABS: PHOSPHORUS 2.5 mg/dL (2.5-4.9)
[2025-05-21 05:44] LABS: FOLIC ACID (FOLATE) SERUM 6.81 ng/mL (>5.38)
[2025-05-21 06:18] LABS: HEPATITIS C AB NON REACTIVE (Neg) (Negative)
[2025-05-21] MEDS: DEXT 5%/0.45% NACL 1000ML 1,000 ML IV SCH (06:39)
[2025-05-21] MEDS: SODIUM CHLORIDE 0.45% 1,000 ML IV SCH (06:52)
[2025-05-21] MEDS ORDERED: BLOOD SUGAR DIAGNOSTIC STRIP TEST SCH (07:50)
[2025-05-21] MEDS ORDERED: INSULIN LISPRO 100 UNITS/ML SUBCUT SCH (08:20)
[2025-05-21 08:31] LABS: BG BASE EXCESS -1.6 mmol/L (-2.0-3.0); BG CARBOXYHEMOGLOBIN 0.1 % (0.5-1.5); BG DEOXYHEMOGLOBIN 5.0 % (0.0-5.0); BG FRACTION INSPIRED OXYGEN 21; BG HCO3 ACT 22.6 mmol/L (21.0-28.0); BG METHEMOGLOBIN 0.1 % (0.5-1.5); BG OXYGEN SATURATION 95.0 % (94.0-98.0); BG OXYHEMOGLOBIN 94.8 % (94.0-98.0); BG PCO2 35.6 mmHg (35.0-48.0); BG PH 7.421 (7.350-7.450); BG PO2 93.6 mmHg (83.0-108.0); BG SAMPLE SITE RIGHT RADIAL; BG TOTAL HEMOGLOBIN 7.7 g/dL (13.5-17.5); BG VENT MODE ROOM AIR
[2025-05-21] MEDS: VANCOMYCIN 750MG/150ML (BAXTER) IV SCH (08:43)
[2025-05-21] MEDS: FERROUS SULFATE 325MG TABLET PO SCH (08:44)
[2025-05-21] MEDS: PANTOPRAZOLE SODIUM 40 MG/VIAL IV SCH (08:44)
[2025-05-21 11:11] LABS: BAND% 10.0 % (1.0-6.0); LYMPHOCYTES % MANUAL 6.0 % (20.0-50.0); MONOCYTES % MANUAL 14.0 % (2.0-8.0); NEUTROPHILS % MANUAL 70.0 % (45.0-75.0); PLATELET ESTIMATE INCREASED
[2025-05-21] MEDS ORDERED: NALOXONE HCL 0.4MG/ML VIAL IV PRN (12:45)
[2025-05-21] MEDS: LACTOBACILLUS RHAMNOSUS GG CAP PO SCH (12:47)
[2025-05-21] MEDS: VANCOMYCIN 1G PREMIX 200 ML IV SCH (21:43)
[2025-05-21] MEDS ORDERED: INSULIN GLARGINE 100 UNITS/ML SUBCUT SCH (22:00)
[2025-05-21 22:05] LABS: CREATININE 0.8 mg/dL (0.6-1.3); UREA NITROGEN BLOOD 7 mg/dL (9-23)
[2025-05-22] VITALS (7 sets, daily range): BP systolic 108–156; BP diastolic 64–89; PULSE 89–109; RESP 14–28; TEMP 36.3–37.1; O2SAT 94–99
[2025-05-22 06:41] LABS: BASOPHILS % 0.5 % (0.0-2.0); EOSINOPHILS % 0.6 % (0.0-5.0); HEMATOCRIT. 24.8 % (42.0-52.0); HEMOGLOBIN. 8.0 g/dL (14.0-18.0); LYMPHOCYTES % 9.5 % (20.0-50.0); MEAN PLATELET VOLUME 8.0 fl (7.4-10.4); MONOCYTES % 8.2 % (2.0-8.0); NEUTROPHILS % 81.2 % (40.0-76.0); PLATELET 425 x1000/uL (130-400); RED BLOOD CELL COUNT 3.02 mill/uL (4.7-6.1); RED CELL DISTRIBUTION WIDTH 15.4 % (11.6-14.6)
[2025-05-22 06:47] LABS: CREATININE 0.7 mg/dL (0.6-1.3); UREA NITROGEN BLOOD 6 mg/dL (9-23)
[2025-05-22] MEDS: INSULIN LISPRO 100 UNITS/ML SUBCUT SCH (08:50)
[2025-05-22] MEDS ORDERED: DEXAMETHASONE 4MG/ML 1ML VIAL ONE (10:25)
[2025-05-22] MEDS ORDERED: PROPOFOL 200MG/20ML VIAL IV ONE (10:25)
[2025-05-22] MEDS ORDERED: ONDANSETRON HCL 4MG/2ML INJ ONE (10:25)
[2025-05-22] MEDS ORDERED: FENTANYL CITRATE/PF 50MCG/ML 2ML VIAL ONE (10:26)
[2025-05-22] MEDS ORDERED: MIDAZOLAM HCL 2 MG/2 ML VIAL ONE (10:27)
[2025-05-22] MEDS ORDERED: POLYMYXIN B SULFATE 500000 UNITS/VIAL ONE (10:58)
[2025-05-22] MEDS ORDERED: MEPERIDINE HCL/PF 25MG/ML CPJ IV PRN (11:15)
[2025-05-22] MEDS ORDERED: LABETALOL 5MG/ML 4ML INJ IV PRN (11:15)
[2025-05-22] MEDS ORDERED: ONDANSETRON HCL 4MG/2ML INJ IV PRN (11:15)
[2025-05-22] MEDS ORDERED: HYDROMORPHONE HCL/PF 2MG/ML INJ ONE (11:36)
[2025-05-22] MEDS ORDERED: CEFAZOLIN SODIUM 2000MG/VIAL IJ SCH (14:00)
[2025-05-22] MEDS: HYDROMORPHONE HCL/PF 1MG/ML INJ IV PRN (14:54)
[2025-05-22] MEDS: TAMSULOSIN HCL 0.4MG SR CAPSULE PO SCH (14:59)
[2025-05-22] MEDS: THIAMINE HCL 100MG TABLET PO SCH (14:59)
[2025-05-22] MEDS: KCL 20MEQ/100ML PREMIX 100 ML IV SCH (17:41)
[2025-05-22] MEDS ORDERED: VANCOMYCIN 1.5GM/250ML IV SCH ×2 (18:00→21:00)
[2025-05-22] MEDS: INSULIN REGULAR (HUMULIN R) 1000UNITS/10ML VIAL IV SCH (20:48)
[2025-05-22 21:13] LABS: CREATININE 1.1 mg/dL (0.6-1.3); UREA NITROGEN BLOOD 15 mg/dL (9-23)
[2025-05-22] MEDS ORDERED: KCL 20MEQ/100ML PREMIX 100 ML IV PRN (22:00)
[2025-05-22] MEDS ORDERED: BLOOD SUGAR DIAGNOSTIC STRIP TEST PRN (22:00)
[2025-05-22] MEDS ORDERED: DEXTROSE 50% WATER 50ML SYRINGE IV PRN (22:00)
[2025-05-22] MEDS ORDERED: MAGNESIUM 2 G PREMIX 50 ML IV PRN (22:00)
[2025-05-22] MEDS ORDERED: SODIUM PHOSPHATE 15 MMOL in SODIUM CHLORIDE 0.9% 250 ML IV PRN (22:00)
[2025-05-22] MEDS ORDERED: INSULIN GLARGINE 100 UNITS/ML SUBCUT SCH (22:00)
[2025-05-22] MEDS ORDERED: POTASSIUM CHLORIDE 40 MEQ in SODIUM CHLORIDE 0.9% 250 ML IV PRN (22:00)
[2025-05-22 22:33] LABS: BG BASE EXCESS -7.3 mmol/L (-2.0-3.0); BG CARBOXYHEMOGLOBIN 0.3 % (0.5-1.5); BG DEOXYHEMOGLOBIN 4.4 % (0.0-5.0); BG FRACTION INSPIRED OXYGEN 21; BG HCO3 ACT 17.1 mmol/L (21.0-28.0); BG METHEMOGLOBIN 0.2 % (0.5-1.5); BG OXYGEN SATURATION 95.6 % (94.0-98.0); BG OXYHEMOGLOBIN 95.1 % (94.0-98.0); BG PCO2 30.4 mmHg (35.0-48.0); BG PH 7.368 (7.350-7.450); BG PO2 99.2 mmHg (83.0-108.0); BG SAMPLE SITE RIGHT RADIAL; BG TOTAL HEMOGLOBIN 9.4 g/dL (13.5-17.5); BG VENT MODE ROOM AIR
[2025-05-22] MEDS: DEXT 5%/0.9% NACL 1,000 ML IV SCH (23:02)
[2025-05-22] MEDS: BLOOD SUGAR DIAGNOSTIC STRIP TEST SCH (23:12)
[2025-05-22] MEDS: INSULIN REGULAR 100U/100ML PMX 100 ML IV SCH (23:30)
[2025-05-22] MEDS: VANCOMYCIN 1.5GM/250ML IV SCH (23:36)
[2025-05-22] MEDS: CALCIUM GLUCONATE 1GM PREMIX 50 ML IV NR (23:37)
[2025-05-22] MEDS: SODIUM CHLORIDE 0.9% 1,000 ML IV SCH (23:38)
[2025-05-23] VITALS (23 sets, daily range): BP systolic 103–149; BP diastolic 65–120; PULSE 85–108; RESP 10–31; TEMP 36.6–36.8; O2SAT 96–100
[2025-05-23] MEDS: MAGNESIUM 1 G PREMIX 100 ML IV SCH (00:03)
[2025-05-23 00:40] LABS: PHOSPHORUS 3.5 mg/dL (2.5-4.9)
[2025-05-23 05:30] LABS: BASOPHILS % 0.2 % (0.0-2.0); EOSINOPHILS % 0.1 % (0.0-5.0); HEMATOCRIT. 24.8 % (42.0-52.0); HEMOGLOBIN. 7.7 g/dL (14.0-18.0); LYMPHOCYTES % 10.8 % (20.0-50.0); MEAN PLATELET VOLUME 7.7 fl (7.4-10.4); MONOCYTES % 6.6 % (2.0-8.0); NEUTROPHILS % 82.3 % (40.0-76.0); PLATELET 503 x1000/uL (130-400); RED BLOOD CELL COUNT 2.92 mill/uL (4.7-6.1); RED CELL DISTRIBUTION WIDTH 15.5 % (11.6-14.6)
[2025-05-23 05:41] LABS: CREATININE 0.9 mg/dL (0.6-1.3); UREA NITROGEN BLOOD 12 mg/dL (9-23)
[2025-05-23 05:43] LABS: PHOSPHORUS 2.5 mg/dL (2.5-4.9)
[2025-05-23] MEDS: INSULIN GLARGINE 100 UNITS/ML SUBCUT SCH ×2 (09:12→22:00)
[2025-05-23] MEDS ORDERED: DEXTROSE 50% WATER 50ML SYRINGE IV PRN (09:15)
[2025-05-23 10:47] LABS: PHOSPHORUS 1.9 mg/dL (2.5-4.9)
[2025-05-23] MEDS: BLOOD SUGAR DIAGNOSTIC STRIP TEST SCH (12:54)
[2025-05-23] MEDS: INSULIN LISPRO 100 UNITS/ML SUBCUT SCH ×2 (12:58→12:59)
[2025-05-23 21:02] LABS: CREATININE 0.6 mg/dL (0.6-1.3); UREA NITROGEN BLOOD < 5 mg/dL (9-23)
[2025-05-24] VITALS (9 sets, daily range): BP systolic 115–140; BP diastolic 74–98; PULSE 89–103; RESP 15–24; TEMP 36.2–37.2; O2SAT 96–99
[2025-05-24 10:08] LABS: HEMATOCRIT. 24.5 % (42.0-52.0); HEMOGLOBIN. 8.2 g/dL (14.0-18.0); MEAN PLATELET VOLUME 7.4 fl (7.4-10.4); PLATELET 658 x1000/uL (130-400); RED BLOOD CELL COUNT 2.97 mill/uL (4.7-6.1); RED CELL DISTRIBUTION WIDTH 15.5 % (11.6-14.6)
[2025-05-24 10:23] LABS: CREATININE 0.7 mg/dL (0.6-1.3); UREA NITROGEN BLOOD < 5 mg/dL (9-23)
[2025-05-24] MEDS: POTASSIUM CHLORIDE 20MEQ TABLET SR PO NR (11:45)
[2025-05-24] MEDS: IBUPROFEN 400MG TABLET PO PRN (12:56)
[2025-05-24 19:03] LABS: LYMPHOCYTES % MANUAL 18.0 % (20.0-50.0); MONOCYTES % MANUAL 15.0 % (2.0-8.0); NEUTROPHILS % MANUAL 67.0 % (45.0-75.0); PLATELET ESTIMATE INCREASED
[2025-05-25] VITALS: BP 128/91; PULSE 105; RESP 19; TEMP 36.6; O2SAT 97
[2025-05-25 04:00] VITALS: BP 112/62; PULSE 90; RESP 19; TEMP 36.6; O2SAT 98
[2025-05-25 08:00] VITALS: BP 128/86; PULSE 81; RESP 20; TEMP 37.2; O2SAT 95
[2025-05-25 10:42] LABS: HEMATOCRIT. 23.9 % (42.0-52.0); HEMOGLOBIN. 7.6 g/dL (14.0-18.0); MEAN PLATELET VOLUME 7.2 fl (7.4-10.4); PLATELET 587 x1000/uL (130-400); RED BLOOD CELL COUNT 2.81 mill/uL (4.7-6.1); RED CELL DISTRIBUTION WIDTH 15.7 % (11.6-14.6)
[2025-05-25 10:56] LABS: CREATININE 0.8 mg/dL (0.6-1.3)
[2025-05-25 10:57] LABS: UREA NITROGEN BLOOD 8 mg/dL (9-23)
[2025-05-25 12:00] VITALS: BP 114/73; PULSE 95; RESP 20; TEMP 36.9; O2SAT 96
[2025-05-25] MEDS: VANCOMYCIN 1G PREMIX 200 ML IV SCH (12:24)
[2025-05-25 14:01] LABS: BAND% 2.0 % (1.0-6.0); EOSINOPHILS % MANUAL 3.0 % (0.0-5.0); LYMPHOCYTES % MANUAL 32.0 % (20.0-50.0); METAMYELOCYTES % 1.0 % (0-0); MONOCYTES % MANUAL 4.0 % (2.0-8.0); NEUTROPHILS % MANUAL 58.0 % (45.0-75.0); PLATELET ESTIMATE INCREASED
[2025-05-25 16:00] VITALS: BP 118/74; PULSE 79; RESP 18; TEMP 36.4; O2SAT 95
[2025-05-25] MEDS: HYDROCODONE/ACETAMINOPHEN 7.5/325MG TABLET PO PRN (18:35)
[2025-05-25 20:00] VITALS: BP 120/83; PULSE 94; RESP 19; TEMP 36.6; O2SAT 97
[2025-05-26] VITALS: BP 125/77; PULSE 93; RESP 18; TEMP 36.4; O2SAT 97
[2025-05-26 04:01] VITALS: BP 133/91; PULSE 94; RESP 19; TEMP 36.6; O2SAT 97
[2025-05-26 07:52] LABS: HEMATOCRIT. 24.0 % (42.0-52.0); HEMOGLOBIN. 8.3 g/dL (14.0-18.0); MEAN PLATELET VOLUME 7.1 fl (7.4-10.4); PLATELET 573 x1000/uL (130-400); RED BLOOD CELL COUNT 2.88 mill/uL (4.7-6.1); RED CELL DISTRIBUTION WIDTH 15.8 % (11.6-14.6)
[2025-05-26 08:00] VITALS: BP 143/91; PULSE 95; RESP 19; TEMP 36.5; O2SAT 99
[2025-05-26 08:04] LABS: CREATININE 0.7 mg/dL (0.6-1.3); UREA NITROGEN BLOOD 7 mg/dL (9-23)
[2025-05-26] MEDS: ONDANSETRON HCL 4MG/2ML INJ IV PRN (08:14)
[2025-05-26] MEDS: KETOROLAC 15MG/ML VIAL IV PRN (08:23)
[2025-05-26 12:00] VITALS: BP 153/93; PULSE 98; RESP 19; TEMP 36.4; O2SAT 100
[2025-05-26 14:20] LABS: BAND% 7.0 % (1.0-6.0); BASOPHILS % MANUAL 1.0 % (0.0-2.0); EOSINOPHILS % MANUAL 6.0 % (0.0-5.0); LYMPHOCYTES % MANUAL 35.0 % (20.0-50.0); METAMYELOCYTES % 2.0 % (0-0); MONOCYTES % MANUAL 4.0 % (2.0-8.0); MYELOCYTES % 2.0 % (0-0); NEUTROPHILS % MANUAL 43.0 % (45.0-75.0); PLATELET ESTIMATE INCREASED
[2025-05-26] MEDS ORDERED: SULF1TAB47 MT ×2 (15:35→15:40)
[2025-05-26] MEDS ORDERED: INSU100I28 SQ ×2 (15:35→15:40)
[2025-05-26] MEDS ORDERED: INSU100V43 SQ ×2 (15:35→15:40)
[2025-05-26] MEDS ORDERED: IBUP-2028 MT (15:40)
[2025-05-26 17:26] VITALS: BP 123/75; PULSE 94; TEMP 98.2; O2SAT 98
[2025-05-26 20:05] VITALS: BP 132/88; PULSE 90; RESP 19; TEMP 36.6; O2SAT 98
[2025-05-27] VITALS: BP 134/88; PULSE 93; RESP 19; TEMP 36.1; O2SAT 97
[2025-05-27 04:00] VITALS: BP 142/85; PULSE 94; RESP 19; TEMP 36.9; O2SAT 98
[2025-05-27 08:00] VITALS: BP 137/84; PULSE 100; RESP 20; TEMP 37; O2SAT 98
[2025-05-27 12:00] VITALS: BP 128/79; PULSE 89; RESP 20; TEMP 36.6; O2SAT 95
== END 2025-05-27 12:40 | disposition home or self-care (01) | DRG 710 ==
LOC: ER 18:31 → CVICU 22:46 → EDBEDREQ 23:01 → EDBEDREQTM 23:01 → EDBEDREQSVC 23:01 → ENRESERV 23:04 → 7WST 05-21 18:37 → CVICU 05-22 22:35 → 7WST 05-24 04:00
PROVIDERS: ADMIT Hospitalist; ATTEND Hospitalist
PROC: 0Y6H0Z1 Detachment at Right Lower Leg, High, Open Approach (ICD-10-PCS; principal; 2025-05-22)
DX: A41.59 Other Gram-negative sepsis (principal); M72.6 Necrotizing fasciitis; A48.0 Gas gangrene; N17.9 Acute kidney failure, unspecified; E10.69 Type 1 diabetes mellitus with other specified complication; E83.39 Other disorders of phosphorus metabolism; L03.115 Cellulitis of right lower limb; E87.1 Hypo-osmolality and hyponatremia; D64.9 Anemia, unspecified; S82.301A Unspecified fracture of lower end of right tibia, initial encounter for closed fracture; S82.831A Other fracture of upper and lower end of right fibula, initial encounter for closed fracture; M86.8X7 Other osteomyelitis, ankle and foot; E87.6 Hypokalemia; M14.679 Charcot's joint, unspecified ankle and foot; X58.XXXA Exposure to other specified factors, initial encounter; E10.52 Type 1 diabetes mellitus with diabetic peripheral angiopathy with gangrene; G54.6 Phantom limb syndrome with pain; Z53.20 Procedure and treatment not carried out because of patient's decision for unspecified reasons; E10.65 Type 1 diabetes mellitus with hyperglycemia; Z59.00 Homelessness unspecified; Z79.899 Other long term (current) drug therapy; Y93.89 Activity, other specified; Y99.8 Other external cause status; Y92.89 Other specified places as the place of occurrence of the external cause; Z79.4 Long term (current) use of insulin
CPT/HCPCS: 36415; 36600; 71045; 73610; 73700; 80048; 80051; 80061; 80076; 80202; 81003; 82010; 82306; 82330; 82375; 82728; 82746; 82803; 82805; 82962; 83036; 83540; 83550; 83605; 83735; 83930; 84100; 84145; 85025; 86705; 86850; 86900; 87070; 87077; 87186; 87340; 88307; 88311; 93005; 97110; 97116; 97162; 97166; 97530; 97535; 99291; A4606; J0610; J0690; J1100; J1171; J1815; J1885; J2250; J2270; J2405; J2470; J2543; J2704; J3010; J3373; J3475; J3480; J3490; J7030; J7042

== ENCOUNTER 2025-06-19 16:07 | Inpatient (IN) | payer MEDICAID ==
[~2025-06-19] VITALS: Ht 160 cm; Wt 58.1 kg
[2025-06-19] VITALS (14 sets, daily range): BP systolic 94–124; BP diastolic 59–91; PULSE 91–108; RESP 10–21; TEMP 36.3–36.3624; O2SAT 99–100
[2025-06-19] MEDS: SODIUM CHLORIDE 0.9% 1,000 ML IV SCH (00:01)
[~2025-06-19 16:07] MED LIST changes: +INSU100I28 SQ; +INSU100V43 SQ; -LANTUSUD SUBCUT; +SULF1TAB47 MT
[2025-06-19] MEDS: SODIUM CHLORIDE 0.9% (SEPSIS BOLUS) IV ONE (16:48)
[2025-06-19] MEDS: CEFTRIAXONE 1GM/50ML 50 ML IV ONE (16:56)
[2025-06-19 17:36] LABS: BASOPHILS % 0.4 % (0.0-2.0); EOSINOPHILS % 0.1 % (0.0-5.0); HEMATOCRIT. 30.0 % (42.0-52.0); HEMOGLOBIN. 9.7 g/dL (14.0-18.0); LYMPHOCYTES % 14.0 % (20.0-50.0); MEAN PLATELET VOLUME 8.9 fl (7.4-10.4); MONOCYTES % 4.9 % (2.0-8.0); NEUTROPHILS % 80.6 % (40.0-76.0); PLATELET 318 x1000/uL (130-400); RED BLOOD CELL COUNT 3.33 mill/uL (4.7-6.1); RED CELL DISTRIBUTION WIDTH 19.3 % (11.6-14.6)
[2025-06-19 17:49] LABS: INR 1.0
[2025-06-19 17:50] LABS: TROPONIN I HIGH SENSITIVITY < 4 ng/L (3.0-53)
[2025-06-19 17:51] LABS: ETHANOL BLOOD < 10 mg/dL (<10); UREA NITROGEN BLOOD 33 mg/dL (9-23)
[2025-06-19 17:52] LABS: ASPARTATE AMINOTRANSFERASE 11 IU/L (<34)
[2025-06-19 17:53] LABS: BILIRUBIN DIRECT 0.2 mg/dL (<=3.0); BILIRUBIN TOTAL 0.7 mg/dL (0.1-1.0); PROTEIN TOTAL 7.5 g/dL (6.0-8.3)
[2025-06-19 17:57] LABS: CREATININE 1.6 mg/dL (0.6-1.3)
[2025-06-19] MEDS: ONDANSETRON HCL 4MG/2ML INJ IV ONE (18:01)
[2025-06-19] MEDS: KETOROLAC 30MG/ML VIAL IV ONE (18:02)
[2025-06-19 18:06] LABS: BG BASE EXCESS -20.0 mmol/L (-2.0-3.0); BG CARBOXYHEMOGLOBIN 0.7 % (0.5-1.5); BG DEOXYHEMOGLOBIN 2.3 % (0.0-5.0); BG FRACTION INSPIRED OXYGEN 21; BG HCO3 ACT 6.6 mmol/L (21.0-28.0); BG METHEMOGLOBIN 0.3 % (0.5-1.5); BG OXYGEN SATURATION 97.7 % (94.0-98.0); BG OXYHEMOGLOBIN 96.7 % (94.0-98.0); BG PCO2 18.4 mmHg (35.0-48.0); BG PH 7.171 (7.350-7.450); BG PO2 132.8 mmHg (83.0-108.0); BG SAMPLE SITE RIGHT RADIAL; BG TOTAL HEMOGLOBIN 10.2 g/dL (13.5-17.5); BG VENT MODE ROOM AIR
[2025-06-19] MEDS ORDERED: DEXTROSE 50% WATER 50ML SYRINGE IV PRN (18:15)
[2025-06-19] MEDS ORDERED: BLOOD SUGAR DIAGNOSTIC STRIP TEST PRN (18:15)
[2025-06-19] MEDS ORDERED: POTASSIUM CHLORIDE 40 MEQ in SODIUM CHLORIDE 0.9% 230 ML IV PRN (18:15)
[2025-06-19 18:23] LABS: CLARITY URINE CLEAR (CLEAR); GLUCOSE URINE 3+ (NEGATIVE); KETONES URINE 4+ (NEGATIVE); LEUKOCYTE ESTERASE URINE NEGATIVE (NEGATIVE); NITRITE URINE NEGATIVE (NEGATIVE); OCCULT BLOOD URINE TRACE (NEGATIVE); PH URINE 5.0 (4.5-8.0); PROTEIN URINE TRACE (NEGATIVE); SPECIFIC GRAVITY URINE 1.022 (1.005-1.030); UROBILINOGEN URINE 0.2 E.U./dL (0.2-1.0)
[2025-06-19] MEDS ORDERED: INSULIN REGULAR 100U/100ML PMX 100 ML IV SCH (18:30)
[2025-06-19 18:49] LABS: COLOR URINE STRAW (YELLOW); RBC URINE NONE SEEN /hpf (0-2); WBC URINE 0-2 /hpf (0-2)
[2025-06-19 18:50] LABS: BACTERIA URINE NONE SEEN; HYALINE CASTS URINE 0-5 /lpf; SQUAMOUS EPITHELIAL CELL URINE RARE /lpf (RARE/1+)
[2025-06-19] MEDS: INSULIN REGULAR 100U/100ML PMX 100 ML IV SCH (20:08)
[2025-06-19] MEDS: KCL 20MEQ/100ML PREMIX 100 ML IV PRN (20:11)
[2025-06-19] MEDS: BLOOD SUGAR DIAGNOSTIC STRIP TEST SCH (21:20)
[2025-06-19 23:29] LABS: CREATININE 1.6 mg/dL (0.6-1.3)
[2025-06-19 23:30] LABS: UREA NITROGEN BLOOD 33 mg/dL (9-23)
[2025-06-19 23:31] LABS: ASPARTATE AMINOTRANSFERASE 10 IU/L (<34)
[2025-06-19 23:32] LABS: BILIRUBIN TOTAL 0.3 mg/dL (0.1-1.0); PROTEIN TOTAL 7.1 g/dL (6.0-8.3)
[2025-06-20] VITALS (49 sets, daily range): BP systolic 88–142; BP diastolic 67–95; PULSE 79–107; RESP 9–20; TEMP 36.6–36.9; O2SAT 97–100
[2025-06-20] MEDS: BLOOD SUGAR DIAGNOSTIC STRIP TEST SCH ×2 (00:40→12:50)
[2025-06-20] MEDS ORDERED: NALOXONE HCL 0.4MG/ML VIAL IV PRN (01:00)
[2025-06-20] MEDS: DEXT 5%/0.9% NACL 1,000 ML IV SCH (01:11)
[2025-06-20 03:54] LABS: CREATININE 1.4 mg/dL (0.6-1.3); UREA NITROGEN BLOOD 31 mg/dL (9-23)
[2025-06-20 03:56] LABS: ASPARTATE AMINOTRANSFERASE 9 IU/L (<34); PHOSPHORUS 2.0 mg/dL (2.5-4.9)
[2025-06-20 03:57] LABS: BILIRUBIN TOTAL 0.6 mg/dL (0.1-1.0); PROTEIN TOTAL 6.5 g/dL (6.0-8.3)
[2025-06-20] MEDS: MAGNESIUM 2 G PREMIX 50 ML IV PRN (05:58)
[2025-06-20] MEDS: MORPHINE SULFATE 2 MG/ML INJ (NOT FOR IM USE) IV PRN (08:23)
[2025-06-20] MEDS: SODIUM PHOSPHATE 15 MMOL in SODIUM CHLORIDE 0.9% 245 ML IV PRN (09:00)
[2025-06-20 10:51] LABS: CREATININE 1.2 mg/dL (0.6-1.3)
[2025-06-20 10:52] LABS: ASPARTATE AMINOTRANSFERASE 10 IU/L (<34); UREA NITROGEN BLOOD 23 mg/dL (9-23)
[2025-06-20 10:54] LABS: BILIRUBIN TOTAL 0.5 mg/dL (0.1-1.0); PHOSPHORUS 1.8 mg/dL (2.5-4.9); PROTEIN TOTAL 6.2 g/dL (6.0-8.3)
[2025-06-20] MEDS: INSULIN GLARGINE 100 UNITS/ML SUBCUT SCH (11:35)
[2025-06-20] MEDS: TAMSULOSIN HCL 0.4MG SR CAPSULE PO SCH (12:45)
[2025-06-20] MEDS ORDERED: SODIUM PHOSPHATE 10 MMOL in DEXT 5% WATER 246.6667 ML IV SCH (13:00)
[2025-06-20] MEDS: INSULIN LISPRO 100 UNITS/ML SUBCUT SCH (13:20)
[2025-06-21] VITALS (12 sets, daily range): BP systolic 114–144; BP diastolic 75–97; PULSE 79–93; RESP 9–22; TEMP 36.3–36.7; O2SAT 97–100
[2025-06-21 06:51] LABS: BASOPHILS % 0.3 % (0.0-2.0); EOSINOPHILS % 2.0 % (0.0-5.0); HEMATOCRIT. 26.9 % (42.0-52.0); HEMOGLOBIN. 8.9 g/dL (14.0-18.0); LYMPHOCYTES % 24.0 % (20.0-50.0); MEAN PLATELET VOLUME 8.2 fl (7.4-10.4); MONOCYTES % 4.2 % (2.0-8.0); NEUTROPHILS % 69.5 % (40.0-76.0); PLATELET 262 x1000/uL (130-400); RED BLOOD CELL COUNT 3.09 mill/uL (4.7-6.1); RED CELL DISTRIBUTION WIDTH 19.1 % (11.6-14.6)
[2025-06-21 06:58] LABS: CREATININE 0.9 mg/dL (0.6-1.3)
[2025-06-21 06:59] LABS: UREA NITROGEN BLOOD 13 mg/dL (9-23)
[2025-06-21] MEDS: ENOXAPARIN 40MG/0.4ML SYR SUBCUT SCH (17:28)
[2025-06-21] MEDS: DEXTROSE 50% WATER 50ML SYRINGE IV PRN (18:35)
[2025-06-22] VITALS: BP 127/89; PULSE 84; RESP 18; TEMP 36.7; O2SAT 100
[2025-06-22 04:00] VITALS: BP 143/99; PULSE 94; RESP 20; TEMP 36.9; O2SAT 100
[2025-06-22 07:26] LABS: BASOPHILS % 0.5 % (0.0-2.0); EOSINOPHILS % 4.3 % (0.0-5.0); HEMATOCRIT. 30.9 % (42.0-52.0); HEMOGLOBIN. 10.0 g/dL (14.0-18.0); LYMPHOCYTES % 28.9 % (20.0-50.0); MEAN PLATELET VOLUME 8.6 fl (7.4-10.4); MONOCYTES % 7.1 % (2.0-8.0); NEUTROPHILS % 59.2 % (40.0-76.0); PLATELET 199 x1000/uL (130-400); RED BLOOD CELL COUNT 3.53 mill/uL (4.7-6.1); RED CELL DISTRIBUTION WIDTH 18.9 % (11.6-14.6)
[2025-06-22 07:31] LABS: CREATININE 0.7 mg/dL (0.6-1.3); UREA NITROGEN BLOOD 12 mg/dL (9-23)
[2025-06-22 07:34] LABS: FOLIC ACID (FOLATE) SERUM 5.73 ng/mL (>5.38); VITAMIN B12 SERUM 672 pg/mL (211-911)
[2025-06-22 08:00] VITALS: BP 146/102; PULSE 83; RESP 18; TEMP 36; TEMP 36.6; O2SAT 100
[2025-06-22 12:00] VITALS: BP 134/93; PULSE 85; RESP 18; TEMP 36.3; O2SAT 100
[2025-06-22] MEDS: ASCORBIC ACID 500 MG TABLET PO SCH (12:34)
[2025-06-22] MEDS: FERROUS SULFATE 325MG TABLET PO SCH (12:34)
[2025-06-22 16:00] VITALS: BP 100/64; PULSE 94; RESP 18; TEMP 36; O2SAT 100
[2025-06-22] MEDS: HYDRALAZINE HCL 25MG TABLET PO SCH (17:00)
[2025-06-22 20:28] VITALS: BP 132/90; PULSE 67; RESP 16; TEMP 36.4; O2SAT 100
[2025-06-23 00:41] VITALS: BP 119/78; PULSE 90; RESP 16; TEMP 36.6; O2SAT 100
[2025-06-23 04:00] VITALS: BP 114/81; PULSE 93; RESP 16; TEMP 36.6; O2SAT 96
[2025-06-23 05:08] LABS: ALPHA FETOPROTEIN TUMOR MARKER 4.6 ng/mL (0.0-6.9); CA 19-9 9.0 U/mL (0-35); CARCINOEMBRYONIC AG - SEND OUT 2.0 ng/mL (0.0-4.7)
[2025-06-23 08:00] VITALS: BP 127/93; PULSE 84; RESP 18; TEMP 35.7; O2SAT 99
[2025-06-23] MEDS: FINASTERIDE 5MG TABLET PO SCH (10:36)
[2025-06-23 12:00] VITALS: BP 129/90; PULSE 85; RESP 18; TEMP 36.6; O2SAT 98
[2025-06-23 16:00] VITALS: BP 127/80; PULSE 70; RESP 17; TEMP 35.6; O2SAT 100
[2025-06-23 20:00] VITALS: BP 96/64; PULSE 103; RESP 18; TEMP 36.6; O2SAT 99
[2025-06-24] VITALS: BP_SYST 111; BP_SYST 136; BP_DIAS 64; BP_DIAS 73; PULSE 83; PULSE 97; RESP 18; RESP 19; TEMP 36.6; TEMP 38.1; O2SAT 99
[2025-06-24 04:00] VITALS: BP 111/73; PULSE 82; RESP 18; TEMP 36.7; O2SAT 98
[2025-06-24 08:00] VITALS: BP 106/73; PULSE 93; RESP 18; TEMP 36.7; O2SAT 99
[2025-06-24 17:05] LABS: BASOPHILS % 0.4 % (0.0-2.0); EOSINOPHILS % 2.9 % (0.0-5.0); HEMATOCRIT. 28.4 % (42.0-52.0); HEMOGLOBIN. 9.4 g/dL (14.0-18.0); LYMPHOCYTES % 15.8 % (20.0-50.0); MEAN PLATELET VOLUME 8.8 fl (7.4-10.4); MONOCYTES % 8.9 % (2.0-8.0); NEUTROPHILS % 72.0 % (40.0-76.0); PLATELET 249 x1000/uL (130-400); RED BLOOD CELL COUNT 3.21 mill/uL (4.7-6.1); RED CELL DISTRIBUTION WIDTH 19.1 % (11.6-14.6)
[2025-06-24 17:17] LABS: CREATININE 1.0 mg/dL (0.6-1.3)
[2025-06-24 17:18] LABS: UREA NITROGEN BLOOD 18 mg/dL (9-23)
[2025-06-24 17:19] LABS: ASPARTATE AMINOTRANSFERASE 64 IU/L (<34)
[2025-06-24 17:20] LABS: BILIRUBIN DIRECT < 0.1 mg/dL (<=3.0); BILIRUBIN TOTAL 0.3 mg/dL (0.1-1.0); PHOSPHORUS 3.6 mg/dL (2.5-4.9); PROTEIN TOTAL 6.5 g/dL (6.0-8.3)
[2025-06-24 17:25] LABS: INR 0.9
[2025-06-24 20:00] VITALS: BP 87/44; PULSE 101; RESP 18; TEMP 36.6; O2SAT 98
[2025-06-25] VITALS: BP 98/60; PULSE 94; RESP 18; TEMP 36.4; O2SAT 98
[2025-06-25] MEDS: MORPHINE SULFATE 2 MG/ML INJ (NOT FOR IM USE) IV PRN (02:57)
[2025-06-25 04:00] VITALS: BP 126/84; PULSE 93; RESP 18; TEMP 36.5; O2SAT 98
[2025-06-25 07:45] LABS: CREATININE 1.0 mg/dL (0.6-1.3); UREA NITROGEN BLOOD 21 mg/dL (9-23)
[2025-06-25 08:00] VITALS: BP 132/84; PULSE 89; RESP 17; TEMP 36.8; O2SAT 97
[2025-06-25 08:06] LABS: BASOPHILS % 1.0 % (0.0-2.0); EOSINOPHILS % 4.1 % (0.0-5.0); HEMATOCRIT. 28.7 % (42.0-52.0); HEMOGLOBIN. 9.3 g/dL (14.0-18.0); LYMPHOCYTES % 24.7 % (20.0-50.0); MONOCYTES % 9.3 % (2.0-8.0); NEUTROPHILS % 60.9 % (40.0-76.0); RED BLOOD CELL COUNT 3.21 mill/uL (4.7-6.1); RED CELL DISTRIBUTION WIDTH 19.3 % (11.6-14.6)
[2025-06-25] MEDS: INSULIN LISPRO 100 UNITS/ML SUBCUT SCH ×2 (08:35→18:24)
[2025-06-25 10:07] LABS: PLATELET 293 x1000/uL (130-400)
[2025-06-25] MEDS: INSULIN GLARGINE 100 UNITS/ML SUBCUT SCH (11:28)
[2025-06-25 12:00] VITALS: BP 109/133; PULSE 96; RESP 16; TEMP 36.9; O2SAT 68
[2025-06-25 16:00] VITALS: BP 119/74; PULSE 91; RESP 17; TEMP 36.7; O2SAT 98
[2025-06-25] MEDS ORDERED: INSULIN LISPRO 100 UNITS/ML SUBCUT SCH (17:10)
[2025-06-25 20:00] VITALS: BP 111/70; PULSE 90; RESP 17; TEMP 36.7; O2SAT 99
[2025-06-26] VITALS: BP 115/76; PULSE 88; RESP 18; TEMP 36.6; O2SAT 98
[2025-06-26 04:00] VITALS: BP 125/74; PULSE 85; RESP 18; TEMP 36.6; O2SAT 95
[2025-06-26 08:00] VITALS: BP 108/76; PULSE 90; RESP 17; TEMP 36.9; O2SAT 98
[2025-06-26] MEDS ORDERED: INSU100I28 SQ (11:53)
[2025-06-26] MEDS ORDERED: TAMS-54 PO (11:53)
[2025-06-26 12:00] VITALS: BP 148/79; PULSE 78; RESP 17; TEMP 36.5; O2SAT 96
[2025-06-26 16:00] VITALS: BP 129/86; PULSE 100; RESP 18; TEMP 36.6; O2SAT 97
[2025-06-26 20:00] VITALS: BP 107/60; PULSE 100; RESP 19; TEMP 37.2; O2SAT 100
[2025-06-27] VITALS: BP 115/75; PULSE 66; RESP 18; TEMP 36.4; O2SAT 99
[2025-06-27 04:00] VITALS: BP 114/74; PULSE 90; RESP 19; TEMP 36.5; O2SAT 100
[2025-06-27 08:00] VITALS: BP 118/81; PULSE 102; RESP 16; TEMP 36.4; O2SAT 97
[2025-06-27 12:00] VITALS: BP 131/80; PULSE 96; RESP 16; TEMP 36.9; O2SAT 100
[2025-06-27 16:00] VITALS: BP 151/98; PULSE 106; RESP 18; TEMP 36.8; O2SAT 99
[2025-06-27 20:00] VITALS: BP 140/89; PULSE 111; RESP 18; TEMP 36.3; O2SAT 99
[2025-06-28] VITALS: BP 140/80; PULSE 112; RESP 18; TEMP 36.3; O2SAT 98
[2025-06-28 01:28] VITALS: TEMP 36.4
[2025-06-28 04:00] VITALS: BP 130/84; PULSE 101; RESP 15; TEMP 36.7; O2SAT 96
[2025-06-28 12:00] VITALS: BP 118/77; PULSE 102; RESP 17; TEMP 36.7; O2SAT 100
[2025-06-28] MEDS ORDERED: DEXTROSE 50% WATER 50ML SYRINGE IV PRN (13:15)
[2025-06-28] MEDS ORDERED: NALOXONE HCL 0.4MG/ML VIAL IV PRN (13:45)
[2025-06-28] MEDS ORDERED: PROPOFOL 200MG/20ML VIAL IV ONE (14:24)
[2025-06-28] MEDS ORDERED: CEFAZOLIN SODIUM 1000MG/VIAL ONE (14:24)
[2025-06-28] MEDS ORDERED: FENTANYL CITRATE/PF 50MCG/ML 2ML VIAL ONE (14:24)
[2025-06-28] MEDS ORDERED: MIDAZOLAM HCL 2 MG/2 ML VIAL ONE (14:25)
[2025-06-28] MEDS ORDERED: LIDOCAINE HCL 1% 20ML VIAL ONE (14:27)
[2025-06-28 20:00] VITALS: BP 120/69; PULSE 107; RESP 17; TEMP 37.4; O2SAT 100
[2025-06-28] MEDS: INSULIN GLARGINE 100 UNITS/ML SUBCUT SCH (22:00)
[2025-06-29] VITALS: BP 141/89; PULSE 103; RESP 17; TEMP 36.7; O2SAT 100
[2025-06-29] MEDS: INSULIN LISPRO 100 UNITS/ML SUBCUT NR (00:17)
[2025-06-29 04:00] VITALS: BP 137/87; PULSE 105; RESP 17; TEMP 36.7; O2SAT 100
[2025-06-29] MEDS: INSULIN LISPRO (LOW DOSE) 100 UNITS/ML SUBCUT SCH (06:25)
[2025-06-29] MEDS: INSULIN LISPRO 100 UNITS/ML SUBCUT SCH (06:31)
[2025-06-29] MEDS ORDERED: INSULIN LISPRO 100 UNITS/ML SUBCUT SCH (06:40)
[2025-06-29 08:00] VITALS: BP 136/83; PULSE 103; RESP 18; TEMP 36.6; O2SAT 98
[2025-06-29 12:00] VITALS: BP 144/102; PULSE 102; RESP 19; TEMP 37.3; O2SAT 99
[2025-06-29 20:00] VITALS: BP 120/75; PULSE 101; RESP 18; TEMP 36.8; O2SAT 100
[2025-06-29] MEDS: INSULIN GLARGINE 100 UNITS/ML SUBCUT SCH (22:13)
[2025-06-30] VITALS: BP 117/77; PULSE 115; RESP 17; TEMP 36.5; O2SAT 100
[2025-06-30 04:00] VITALS: BP 110/71; PULSE 96; RESP 17; TEMP 36.4; O2SAT 100
[2025-06-30] MEDS: HYDROCODONE/ACETAMINOPHEN 5/325MG TABLET PO PRN (19:03)
[2025-06-30 20:00] VITALS: BP 110/72; PULSE 106; RESP 18; TEMP 36.9; O2SAT 100
[2025-06-30] MEDS: INSULIN GLARGINE 100 UNITS/ML SUBCUT SCH (22:00)
[2025-07-01] VITALS: BP 111/71; PULSE 100; RESP 18; TEMP 36.6; O2SAT 100
[2025-07-01 04:00] VITALS: BP 99/73; PULSE 95; RESP 18; TEMP 36.4; O2SAT 100
[2025-07-01 08:00] VITALS: BP 120/86; PULSE 119; RESP 18; TEMP 36.8; O2SAT 99
[2025-07-01 12:00] VITALS: BP 130/70; PULSE 90; RESP 18; TEMP 36.6; O2SAT 98
[2025-07-01 16:00] VITALS: BP 115/86; PULSE 100; RESP 18; TEMP 37; O2SAT 100
[2025-07-01] MEDS: INSULIN LISPRO 100 UNITS/ML SUBCUT NR (17:31)
[2025-07-01] MEDS: INSULIN LISPRO 100 UNITS/ML SUBCUT SCH (19:12)
[2025-07-01 20:00] VITALS: BP 106/66; PULSE 132; RESP 18; TEMP 37.1
[2025-07-02] VITALS: BP 108/68; PULSE 130; RESP 18; TEMP 36.9
[2025-07-02 04:00] VITALS: BP 121/86; PULSE 124; RESP 18; TEMP 37; O2SAT 98
[2025-07-02 08:00] VITALS: BP 129/87; PULSE 100; RESP 20; TEMP 36.4; O2SAT 9
[2025-07-02 08:19] LABS: CREATININE 0.8 mg/dL (0.6-1.3)
[2025-07-02 08:21] LABS: UREA NITROGEN BLOOD 29 mg/dL (9-23)
[2025-07-02 08:22] LABS: T4 FREE 1.31 ng/dL (0.89-1.76)
[2025-07-02 12:00] VITALS: BP 128/9; PULSE 98; RESP 18; TEMP 36.4; O2SAT 98
[2025-07-02] MEDS: ERGOCALCIFEROL 50000UNITS CAPSULE PO SCH (13:13)
[2025-07-02 16:00] VITALS: BP 134/88; PULSE 88; RESP 20; TEMP 36.7; O2SAT 99
[2025-07-02] MEDS ORDERED: NALOXONE HCL 0.4MG/ML VIAL IV PRN (17:45)
[2025-07-02 20:00] VITALS: BP 129/90; PULSE 126; RESP 18; TEMP 36.9; O2SAT 99
[2025-07-03] VITALS: BP 130/85; PULSE 115; RESP 18; TEMP 36.8; O2SAT 99
[2025-07-03 04:00] VITALS: BP 141/94; PULSE 114; RESP 16; O2SAT 100
[2025-07-03 08:00] VITALS: BP 121/76; PULSE 122; RESP 20; TEMP 36.6; O2SAT 99
[2025-07-03] MEDS: INSULIN GLARGINE 100 UNITS/ML SUBCUT SCH (10:00)
[2025-07-03 12:00] VITALS: BP 127/87; PULSE 117; RESP 22; TEMP 36.8; O2SAT 98
[2025-07-03] MEDS: SODIUM CHLORIDE 0.9% (SEPSIS BOLUS) IV NR (13:45)
[2025-07-03] MEDS ORDERED: INSULIN LISPRO 100 UNITS/ML SUBCUT SCH (17:10)
== END 2025-07-03 15:19 | disposition left against medical advice (07) | DRG 420 ==
LOC: ER 16:07 → CVICU 18:53 → EDBEDREQTM 18:55 → EDBEDREQ 18:55 → EDBEDREQSVC 18:55 → ENRESERV 19:46 → 7WST 06-21 04:17 → 7EST 06-23 15:24
PROVIDERS: ADMIT Internal Medicine; ATTEND Internal Medicine
PROC: 0TJB8ZZ Inspection of Bladder, Via Natural or Artificial Opening Endoscopic (ICD-10-PCS; principal; 2025-06-28)
DX: E10.10 Type 1 diabetes mellitus with ketoacidosis without coma (principal); E10.51 Type 1 diabetes mellitus with diabetic peripheral angiopathy without gangrene; N13.30 Unspecified hydronephrosis; E10.43 Type 1 diabetes mellitus with diabetic autonomic (poly)neuropathy; K31.84 Gastroparesis; D64.9 Anemia, unspecified; E55.9 Vitamin D deficiency, unspecified; E61.1 Iron deficiency; F39 Unspecified mood [affective] disorder; N36.8 Other specified disorders of urethra; T38.3X6A Underdosing of insulin and oral hypoglycemic [antidiabetic] drugs, initial encounter; Z91.128 Patient's intentional underdosing of medication regimen for other reason; Z55.6 Problems related to health literacy; Z79.4 Long term (current) use of insulin; Z83.3 Family history of diabetes mellitus; Z89.511 Acquired absence of right leg below knee; Z91.148 Patient's other noncompliance with medication regimen for other reason
CPT/HCPCS: 36415; 36600; 71045; 74176; 76770; 80048; 80053; 80076; 80320; 81003; 82010; 82105; 82270; 82375; 82378; 82607; 82728; 82746; 82805; 82962; 83036; 83540; 83550; 83605; 83735; 83930; 84100; 84145; 84153; 84439; 84484; 85025; 85044; 86301; 87493; 93005; 97162; 97165; 99291; A4606; J0690; J0696; J1650; J1815; J1885; J2003; J2250; J2270; J2405; J2704; J3010; J3475; J3480; J3490; J7030; J7050; J7060; A4315; G0480

== ENCOUNTER 2025-07-06 11:03 | Emergency (ER) | payer MEDICAID ==
[~2025-07-06] VITALS: Ht 175.3 cm; Wt 73.0 kg
[2025-07-06 11:05] VITALS: O2SAT 99
[2025-07-06 12:07] LABS: BASOPHILS % 0.8 % (0.0-2.0); EOSINOPHILS % 1.5 % (0.0-5.0); HEMATOCRIT. 30.7 % (42.0-52.0); HEMOGLOBIN. 10.2 g/dL (14.0-18.0); LYMPHOCYTES % 18.7 % (20.0-50.0); MEAN PLATELET VOLUME 8.0 fl (7.4-10.4); MONOCYTES % 5.3 % (2.0-8.0); NEUTROPHILS % 73.7 % (40.0-76.0); PLATELET 295 x1000/uL (130-400); RED BLOOD CELL COUNT 3.46 mill/uL (4.7-6.1); RED CELL DISTRIBUTION WIDTH 18.8 % (11.6-14.6)
[2025-07-06 12:13] LABS: CLARITY URINE CLOUDY (CLEAR); COLOR URINE YELLOW (YELLOW); GLUCOSE URINE 3+ (NEGATIVE); KETONES URINE NEGATIVE (NEGATIVE); LEUKOCYTE ESTERASE URINE NEGATIVE (NEGATIVE); NITRITE URINE POSITIVE (NEGATIVE); OCCULT BLOOD URINE 2+ (NEGATIVE); PH URINE 5.5 (4.5-8.0); PROTEIN URINE 1+ (NEGATIVE); SPECIFIC GRAVITY URINE 1.025 (1.005-1.030); UROBILINOGEN URINE 0.2 E.U./dL (0.2-1.0)
[2025-07-06 12:16] LABS: CREATININE 0.7 mg/dL (0.6-1.3)
[2025-07-06 12:17] LABS: TROPONIN I HIGH SENSITIVITY < 4 ng/L (3.0-53); UREA NITROGEN BLOOD 23 mg/dL (9-23)
[2025-07-06 12:18] LABS: ASPARTATE AMINOTRANSFERASE 41 IU/L (<34)
[2025-07-06 12:19] LABS: BILIRUBIN DIRECT 0.2 mg/dL (<=3.0); BILIRUBIN TOTAL 0.5 mg/dL (0.1-1.0); PROTEIN TOTAL 7.1 g/dL (6.0-8.3)
[2025-07-06 12:31] LABS: INR 1.0
[2025-07-06 12:34] LABS: BACTERIA URINE 4+; RBC URINE NONE SEEN /hpf (0-2); SQUAMOUS EPITHELIAL CELL URINE NONE SEEN /lpf (RARE/1+); YEAST URINE NONE SEEN
[2025-07-06] MEDS: CEFTRIAXONE 1GM/50ML 50 ML IV ONE (13:16)
[2025-07-06] MEDS: MORPHINE SULFATE 4 MG/ML INJ (FOR IV/IM USE) IV ONE (13:16)
[2025-07-06] MEDS ORDERED: CEFP200T14 MT (14:09)
[2025-07-06 14:50] VITALS: BP 123/75; PULSE 96; RESP 16; TEMP 36.7; O2SAT 99
== END 2025-07-06 14:53 | disposition home or self-care (01) ==
LOC: ER 11:03 → CANBEDREQ 13:03 → ER 14:53
DX: E11.649 Type 2 diabetes mellitus with hypoglycemia without coma (principal); N39.0 Urinary tract infection, site not specified; I10 Essential (primary) hypertension; Z79.899 Other long term (current) drug therapy; Z89.511 Acquired absence of right leg below knee
CPT/HCPCS: 80076; 80048; 81003; 82962; 83735; 85025; 85610; 85730; 84484; 36415; 71045; 93005; 96365; 96375; 99285; J0696; J2270; Z7610

== ENCOUNTER 2025-07-13 08:06 | Inpatient (IN) | payer MEDICAID ==
[2025-07-13] VITALS (43 sets, daily range): BP systolic 64–162; BP diastolic 41–122; PULSE 92–107; RESP 12–24; TEMP 36.4–36.6; O2SAT 96–100
[~2025-07-13] VITALS: Ht 170.2 cm; Wt 59.0 kg
[~2025-07-13 08:06] MED LIST changes: +CEFP200T14 MT
[2025-07-13] MEDS: NOREPINEPHRINE 8MG/250ML PMX 250 ML IV ONE (09:00)
[2025-07-13] MEDS: LACTATED RINGERS 1,000 ML IV SCH ×2 (09:01→10:37)
[2025-07-13] MEDS: LACTATED RINGERS 1,040 ML IV SCH (09:01)
[2025-07-13 09:18] LABS: HEMATOCRIT. 44.9 % (42.0-52.0); HEMOGLOBIN. 12.4 g/dL (14.0-18.0); MEAN PLATELET VOLUME 10.3 fl (7.4-10.4); PLATELET 325 x1000/uL (130-400); RED BLOOD CELL COUNT 4.11 mill/uL (4.7-6.1); RED CELL DISTRIBUTION WIDTH 17.2 % (11.6-14.6)
[2025-07-13] MEDS: PIPERACILLIN/TAZO 3.375G/50ML 50 ML IV STA (09:24)
[2025-07-13 09:34] LABS: UREA NITROGEN BLOOD 35 mg/dL (9-23)
[2025-07-13 09:35] LABS: ASPARTATE AMINOTRANSFERASE 20 IU/L (<34); BILIRUBIN DIRECT 0.2 mg/dL (<=3.0)
[2025-07-13 09:36] LABS: BILIRUBIN TOTAL 0.5 mg/dL (0.1-1.0); PROTEIN TOTAL 7.3 g/dL (6.0-8.3)
[2025-07-13 09:41] LABS: BAND% 6.0 % (1.0-6.0); LYMPHOCYTES % MANUAL 1.0 % (20.0-50.0); METAMYELOCYTES % 1.0 % (0-0); MONOCYTES % MANUAL 7.0 % (2.0-8.0); NEUTROPHILS % MANUAL 85.0 % (45.0-75.0); PLATELET ESTIMATE NORMAL
[2025-07-13 09:49] LABS: CREATININE 2.9 mg/dL (0.6-1.3)
[2025-07-13] MEDS ORDERED: INSULIN REGULAR (DRIP) 100 UNITS in SODIUM CHLORIDE 0.9% 99 ML IV STA (09:56)
[2025-07-13] MEDS ORDERED: DEXTROSE 50% WATER 50ML SYRINGE IV PRN ×2 (10:00→17:15)
[2025-07-13] MEDS ORDERED: BLOOD SUGAR DIAGNOSTIC STRIP TEST PRN ×2 (10:00→17:15)
[2025-07-13] MEDS ORDERED: LIDOCAINE HCL 1% 10 MG/ML 10ML VIAL ONE ×2 (10:15→12:57)
[2025-07-13] MEDS: CALCIUM GLUCONATE 100MG/ML 10ML VIAL IV ONE ×2 (10:20)
[2025-07-13] MEDS: BLOOD SUGAR DIAGNOSTIC STRIP TEST SCH ×2 (10:37→20:00)
[2025-07-13] MEDS: INSULIN REGULAR (HUMULIN R) 1000UNITS/10ML VIAL IV ONE (10:48)
[2025-07-13] MEDS: INSULIN REGULAR 100U/100ML PMX 100 ML IV SCH (10:49)
[2025-07-13] MEDS ORDERED: DEXT 5%/0.45% NACL 1000ML 1,000 ML IV PRN (12:30)
[2025-07-13] MEDS ORDERED: ACETAMINOPHEN 325MG TABLET PO PRN (12:30)
[2025-07-13] MEDS ORDERED: NOREPINEPHRINE 8MG/250ML PMX 250 ML IV PRN (12:45)
[2025-07-13 15:15] LABS: CREATININE 2.6 mg/dL (0.6-1.3); UREA NITROGEN BLOOD 42 mg/dL (9-23)
[2025-07-13] MEDS ORDERED: MAGNESIUM 2 G PREMIX 50 ML IV PRN (17:15)
[2025-07-13] MEDS ORDERED: SODIUM PHOSPHATE 15 MMOL in SODIUM CHLORIDE 0.9% 245 ML IV PRN (17:15)
[2025-07-13] MEDS ORDERED: POTASSIUM CHLORIDE 40 MEQ in SODIUM CHLORIDE 0.9% 230 ML IV PRN (17:15)
[2025-07-13 17:23] LABS: PHOSPHORUS 5.8 mg/dL (2.5-4.9)
[2025-07-13] MEDS: KCL 20MEQ/100ML PREMIX 100 ML IV PRN (17:23)
[2025-07-13] MEDS: SODIUM CHLORIDE 0.9% 1,000 ML IV SCH (17:24)
[2025-07-13] MEDS: CEFTRIAXONE 1GM/50ML 50 ML IV SCH (17:25)
[2025-07-13 17:32] LABS: BG BASE EXCESS -12.9 mmol/L (-2.0-3.0); BG CARBOXYHEMOGLOBIN 0.7 % (0.5-1.5); BG DEOXYHEMOGLOBIN 2.9 % (0.0-5.0); BG FLOW(L/min) 2.00 L/min; BG FRACTION INSPIRED OXYGEN 28; BG HCO3 ACT 11.8 mmol/L (21.0-28.0); BG METHEMOGLOBIN 0.0 % (0.5-1.5); BG OXYGEN SATURATION 97.1 % (94.0-98.0); BG OXYHEMOGLOBIN 96.4 % (94.0-98.0); BG PCO2 24.8 mmHg (35.0-48.0); BG PH 7.295 (7.350-7.450); BG PO2 101.1 mmHg (83.0-108.0); BG SAMPLE SITE RIGHT RADIAL; BG TOTAL HEMOGLOBIN 12.5 g/dL (13.5-17.5); BG VENT MODE NASAL CANNULA
[2025-07-13] MEDS: HYDROCODONE/ACETAMINOPHEN 5/325MG TABLET PO PRN (19:39)
[2025-07-13] MEDS ORDERED: NALOXONE HCL 0.4MG/ML VIAL IV PRN (19:45)
[2025-07-13 20:29] LABS: CREATININE 1.9 mg/dL (0.6-1.3); UREA NITROGEN BLOOD 36 mg/dL (9-23)
[2025-07-13 20:31] LABS: PHOSPHORUS 3.5 mg/dL (2.5-4.9)
[2025-07-13 21:07] LABS: HEPATITIS C AB NON REACTIVE (Neg) (Negative)
[2025-07-13 23:21] LABS: CREATININE 1.6 mg/dL (0.6-1.3); UREA NITROGEN BLOOD 33.0 mg/dL (9-23)
[2025-07-14] VITALS (47 sets, daily range): BP systolic 89–132; BP diastolic 52–91; PULSE 88–102; RESP 11–28; TEMP 36.3–36.7; O2SAT 86–100
[2025-07-14] MEDS: DEXT 5%/0.9% NACL 1,000 ML IV SCH (00:15)
[2025-07-14 00:37] LABS: PHOSPHORUS 2.6 mg/dL (2.5-4.9)
[2025-07-14 04:40] LABS: CREATININE 1.1 mg/dL (0.6-1.3)
[2025-07-14 04:43] LABS: PHOSPHORUS 2.4 mg/dL (2.5-4.9)
[2025-07-14 04:48] LABS: UREA NITROGEN BLOOD 28 mg/dL (9-23)
[2025-07-14 05:19] LABS: HEMATOCRIT. 26.8 % (42.0-52.0); HEMOGLOBIN. 9.3 g/dL (14.0-18.0); MEAN PLATELET VOLUME 8.5 fl (7.4-10.4); PLATELET 258 x1000/uL (130-400); RED BLOOD CELL COUNT 3.10 mill/uL (4.7-6.1); RED CELL DISTRIBUTION WIDTH 18.1 % (11.6-14.6)
[2025-07-14] MEDS: ENOXAPARIN 40MG/0.4ML SYR SUBCUT SCH (08:54)
[2025-07-14] MEDS: PANTOPRAZOLE SODIUM 40 MG/VIAL IV SCH (08:54)
[2025-07-14 10:20] LABS: CREATININE 0.9 mg/dL (0.6-1.3); UREA NITROGEN BLOOD 21 mg/dL (9-23)
[2025-07-14 10:22] LABS: PHOSPHORUS 1.5 mg/dL (2.5-4.9)
[2025-07-14] MEDS ORDERED: DEXTROSE 50% WATER 50ML SYRINGE IV PRN (10:30)
[2025-07-14] MEDS: INSULIN GLARGINE 100 UNITS/ML SUBCUT NR (11:30)
[2025-07-14] MEDS: BLOOD SUGAR DIAGNOSTIC STRIP TEST SCH (11:30)
[2025-07-14] MEDS: INSULIN LISPRO 100 UNITS/ML SUBCUT SCH (11:55)
[2025-07-14 12:47] LABS: CLARITY URINE CLOUDY (CLEAR); COLOR URINE YELLOW (YELLOW); GLUCOSE URINE 3+ (NEGATIVE); KETONES URINE NEGATIVE (NEGATIVE); LEUKOCYTE ESTERASE URINE 2+ (NEGATIVE); NITRITE URINE NEGATIVE (NEGATIVE); OCCULT BLOOD URINE 2+ (NEGATIVE); PH URINE 5.5 (4.5-8.0); PROTEIN URINE 1+ (NEGATIVE); SPECIFIC GRAVITY URINE 1.025 (1.005-1.030); UROBILINOGEN URINE 0.2 E.U./dL (0.2-1.0)
[2025-07-14 12:51] LABS: BAND% 7.0 % (1.0-6.0); LYMPHOCYTES % MANUAL 8.0 % (20.0-50.0); MONOCYTES % MANUAL 6.0 % (2.0-8.0); MYELOCYTES % 1.0 % (0-0); NEUTROPHILS % MANUAL 78.0 % (45.0-75.0); PLATELET ESTIMATE NORMAL
[2025-07-14 13:01] LABS: SQUAMOUS EPITHELIAL CELL URINE FEW /lpf (RARE/1+)
[2025-07-14 13:03] LABS: *AMPHETAMINES SCREEN URINE PRESUMPTIVE POSITIVE (NEGATIVE); *BARBITURATES SCREEN URINE NEGATIVE (NEGATIVE); *BENZODIAZEPINES SCREEN URINE NEGATIVE (NEGATIVE); WBC URINE 25-50 /hpf (0-2)
[2025-07-14 13:04] LABS: *COCAINE SCREEN URINE NEGATIVE (NEGATIVE); BACTERIA URINE 1+; CANNABINOID URINE SCREEN NEGATIVE (NEGATIVE); ECSTASY MDMA SCREEN URINE NEGATIVE (NEGATIVE); METHADONE URINE SCREEN NEGATIVE (NEGATIVE); OPIATES URINE SCREEN PRESUMPTIVE POSITIVE (NEGATIVE); PHENCYCLIDINE URINE SCREEN NEGATIVE (NEGATIVE); YEAST URINE 1+
[2025-07-14] MEDS: SODIUM CHLORIDE 0.45% 1,000 ML IV SCH (20:51)
[2025-07-14] MEDS: INSULIN GLARGINE 100 UNITS/ML SUBCUT SCH (22:44)
[2025-07-15] VITALS: BP 131/89; PULSE 93; RESP 15; TEMP 36.6; O2SAT 99
[2025-07-15 04:00] VITALS: BP 124/87; PULSE 90; RESP 16; TEMP 36.5; O2SAT 99
[2025-07-15 07:18] LABS: BASOPHILS % 0.2 % (0.0-2.0); EOSINOPHILS % 3.6 % (0.0-5.0); HEMATOCRIT. 27.8 % (42.0-52.0); HEMOGLOBIN. 9.5 g/dL (14.0-18.0); LYMPHOCYTES % 19.3 % (20.0-50.0); MEAN PLATELET VOLUME 8.3 fl (7.4-10.4); MONOCYTES % 5.3 % (2.0-8.0); NEUTROPHILS % 71.6 % (40.0-76.0); PLATELET 191 x1000/uL (130-400); RED BLOOD CELL COUNT 3.19 mill/uL (4.7-6.1); RED CELL DISTRIBUTION WIDTH 18.9 % (11.6-14.6)
[2025-07-15 07:24] LABS: CREATININE 0.6 mg/dL (0.6-1.3)
[2025-07-15 07:25] LABS: UREA NITROGEN BLOOD 11 mg/dL (9-23)
[2025-07-15 08:00] VITALS: BP 126/86; PULSE 94; RESP 18; TEMP 36.4; O2SAT 99
[2025-07-15] MEDS: ONDANSETRON HCL 4MG/2ML INJ IV PRN (09:48)
[2025-07-15] MEDS ORDERED: INSU100I28 SQ (10:21)
[2025-07-15] MEDS ORDERED: CEFP200T13 MT (10:21)
[2025-07-15 11:03] VITALS: BP 125/86; PULSE 94; RESP 18; TEMP 97.6
== END 2025-07-15 14:20 | disposition home or self-care (01) | DRG 720 ==
LOC: ER 08:06 → MICUSO 10:15 → EDBEDREQTM 10:19 → EDBEDREQSVC 10:19 → EDBEDREQ 10:19 → CANRESERV 11:16 → ENRESERV 11:16 → 7EST 07-14 18:39
PROVIDERS: ADMIT Internal Medicine; ATTEND Internal Medicine
PROC: 05HY33Z Insertion of Infusion Device into Upper Vein, Percutaneous Approach (ICD-10-PCS; principal; 2025-07-13)
PROC: B54MZZA Ultrasonography of Right Upper Extremity Veins, Guidance (ICD-10-PCS; 2025-07-13)
DX: A41.9 Sepsis, unspecified organism (principal); R65.21 Severe sepsis with septic shock; E10.10 Type 1 diabetes mellitus with ketoacidosis without coma; E87.5 Hyperkalemia; N17.9 Acute kidney failure, unspecified; E10.51 Type 1 diabetes mellitus with diabetic peripheral angiopathy without gangrene; D53.9 Nutritional anemia, unspecified; E87.1 Hypo-osmolality and hyponatremia; T38.3X6A Underdosing of insulin and oral hypoglycemic [antidiabetic] drugs, initial encounter; F41.9 Anxiety disorder, unspecified; F55.8 Abuse of other non-psychoactive substances; N39.0 Urinary tract infection, site not specified; F15.90 Other stimulant use, unspecified, uncomplicated; Z89.511 Acquired absence of right leg below knee; Z91.128 Patient's intentional underdosing of medication regimen for other reason; Z79.4 Long term (current) use of insulin; Y92.89 Other specified places as the place of occurrence of the external cause
CPT/HCPCS: 36415; 36573; 36600; 71045; 74176; 80048; 80051; 80076; 80305; 81003; 82010; 82375; 82805; 82962; 83036; 83605; 83735; 83930; 84100; 84145; 85025; 86705; 87340; 93005; 93970; 99291; A4606; C1725; C1769; J0612; J0696; J1650; J1815; J2003; J2405; J2470; J2543; J3480; J3490; J7030; J7042; J7050; J7120